=== PATIENT | male | born 1940 | race Caucasian/White ===

== ENCOUNTER 2017-08-09 10:22 | Inpatient (IN) | payer OTHER, MEDICARE ==
[~2017-08-09] VITALS: Ht 177.8 cm; Wt 128.1 kg
[2017-08-09] VITALS (12 sets, daily range): BP systolic 122–200; BP diastolic 74–100; PULSE 58–90; RESP 18–22; TEMP 97.5–98.8; O2SAT 98–100
[~2017-08-09 10:22] MED LIST: CEPH500T PO; TRAM50 PO
[2017-08-09] MEDS ORDERED: TAMS5CAP PO ×2 (10:33)
[2017-08-09] MEDS ORDERED: SODIUM CHLORIDE 0.9% FLUSH 10 ML FLUSH IVF PRN ×2 (11:15)
[2017-08-09 11:37] LABS: AUTOMATED NEUTROPHIL # 4.2 TH/MM3 (1.8-7.7); BASOPHIL % 0.7 % (0.0-2.0); EOSINOPHIL # 0.2 TH/MM3 (0-0.4); EOSINOPHIL % 3.1 % (0.0-4.0); HEMATOCRIT 36.5 % (39.0-51.0); HEMOGLOBIN 12.4 GM/DL (13.0-17.0); LYMPH % 15.9 % (9.0-44.0); MEAN CELL VOLUME 88.9 FL (80.0-100.0); MEAN CORPUSCULAR HEMOGLOBIN 30.1 PG (27.0-34.0); MEAN CORPUSCULAR HGB CONC 33.9 % (32.0-36.0); MONOCYTE # 0.7 TH/MM3 (0-0.9); NEUT % 69.3 % (16.0-70.0); PLATELET COUNT 236 TH/MM3 (150-450); RED BLOOD COUNT 4.11 MIL/MM3 (4.50-5.90); RED CELL DISTRIBUTION WIDTH 12.4 % (11.6-17.2); WHITE BLOOD COUNT 6.1 TH/MM3 (4.0-11.0)
--- NOTE | 2017-08-09 11:43 | RADRPT ---
EXAM DATE/TIME: 08/09/2017 11:22 [facility] COMPARISON: No previous studies available for comparison. INDICATIONS : Numbness and tingling in right arm and leg since last night. Dizziness. Evaluate for cerebrovascula r accident. RADIATION DOSE: 65.95 CTDIvol (mGy) MEDICAL HISTORY : Carcinoma, prostate. SURGICAL HISTORY : None. ENCOUNTER: Initial ACUITY: 1 day PAIN SCALE: 0/10 LOCATION: cranial TECHNIQUE: Multiple contiguous axial images were obtained of the head. Using automated exposure control and adj ustment of the mA and/or kV according to patient size, radiation dose was kept as low as reasonably a chievable to obtain optimal diagnostic quality images. DICOM format image data is available electro nically for review and comparison. FINDINGS: There is a 1.6 cm acute hematoma involving the posterior limb of the internal capsule on the left at the lateral aspect of the globus pallidus without significant mass effect or midline shift. The locat ion of characteristic of hypertensive hemorrhage. No vasogenic edema is identified. No cortical infar ction is seen. Posterior fossa structures are unremarkable. CONCLUSION: 1. 1.7 cm hematoma involving left basal ganglia characteristic of hypertensive hemorrhage. Jesus Arana MD on August 09, 2017 at 11:40 Board Certified Radiologist. This report was verified electronically.
--- NOTE | 2017-08-09 11:47 | PD ---
HPI Chief Complaint: Neuro Symptoms/ Deficits Time Seen by Provider: 11:00 Travel History International Travel<30 days: No Contact w/Intl Traveler<30days: No Traveled to known affect area: No History of Present Illness HPI c/o tingling to rt ue/rt le since last night around 10pm, patient went to sleep hoping it would improve, it did not, but it did not get worse...WOULD RATE IT / 10.....NO ALLEVIATING/AGGRAVATING FACTORS. DENIES H/O HTN.....DENIES MENDEZ/N/V/CP PCP JULIEN ROSALES PMHX: HYPERCHOL, PROSTATE OF NOTE PATIENT SEEN FIRST THING AT BEGINNING OF SHIFT PFSH Past Medical History Cancer: Yes (prostate) High Cholesterol: Yes Diabetes: No Diminished Hearing: No GERD: Yes Thyroid Disease: Yes Influenza Vaccination: Yes (08/07/17) Past Surgical History Abdominal Surgery: Yes (HERNIA) Social History Alcohol Use: No Tobacco Use: No Substance Use: No Allergies-Medications (Allergen,Severity, Reaction): Coded Allergies: shellfish derived (Verified Allergy, Unknown, 08/09/17) Reported Meds & Prescriptions Reported Meds & Active Scripts Active Reported Flomax (Tamsulosin HCl) 0.4 Mg Cap 0.4 Mg PO HS Review of Systems Except as stated in HPI: all other systems reviewed are Neg General / Constitutional: No: Fever Eyes: No: Visual changes HENT: No: Headaches Cardiovascular: No: Chest Pain or Discomfort Respiratory: No: Shortness of Breath Gastrointestinal: No: Abdominal Pain Genitourinary: No: Dysuria Musculoskeletal: No: Pain Skin: No Rash Neurologic: Positive: Paresthesia Psychiatric: No: Depression Endocrine: No: Polydipsia Hematologic/Lymphatic: No: Easy Bruising Physical Exam Narrative GENERAL: SKIN: Warm and dry. HEAD: Atraumatic. Normocephalic. EYES: Pupils equal and round. No scleral icterus. No injection or drainage. ENT: No nasal bleeding or discharge. Mucous membranes pink and moist. NECK: Trachea midline. No JVD. CARDIOVASCULAR: Regular rate and rhythm. RESPIRATORY: No accessory muscle use. Clear to auscultation. Breath sounds equal bilaterally. GASTROINTESTINAL: Abdomen soft, non-tender, nondistended. MUSCULOSKELETAL: Extremities without clubbing, cyanosis, or edema. No obvious deformities. NEUROLOGICAL: Awake and alert. No obvious cranial nerve deficits. Motor grossly within normal limits. Five out of 5 muscle strength in the arms and legs. Normal speech. PSYCHIATRIC: Appropriate mood and affect; insight and judgment normal. Data Data Last Documented VS Vital Signs Date Time Temp Pulse Resp B/P (MAP) Pulse Ox O2 Delivery O2 Flow Rate FiO2 08/09/17 11:22 80 18 98 Room Air 08/09/17 10:33 97.5 193/100 (131) Orders Orders Electrocardiogram (08/09/17 11:01) Prothrombin Time / Inr (Pt) (08/09/17 11:01) Act Partial Throm Time (Ptt) (08/09/17 11:01) Complete Blood Count With Diff (08/09/17 11:01) Comprehensive Metabolic Panel (08/09/17 11:) Troponin I (08/09/17 11:01) Urinalysis - C+S If Indicated (08/09/17 11:01) Ct Brain W/O Iv Contrast(Rout) (08/09/17 11:01) Chest, Single Ap (08/09/17 11:01) Ecg Monitoring (08/09/17 11:01) Iv Access Insert/Monitor (08/09/17 11:01) Oxygen Administration (08/09/17 11:01) Oximetry (08/09/17 11:01) Blood Glucose (08/09/17 11:01) Sodium Chloride 0.9% Flush (Ns Flush) (08/09/17 11:15) Esmolol Drip Inj Premix (Brevibloc Drip (08/09/17 11:45) Nicardipine Inj (Cardene Inj) (08/09/17 12:00) Admit Order (Ed Use Only) (08/09/17 11:52) Labs Laboratory Tests Test 08/09/17 11:20 White Blood Count 6.1 TH/MM3 Red Blood Count 4.11 MIL/MM3 Hemoglobin 12.4 GM/DL Hematocrit 36.5 % Mean Corpuscular Volume 88.9 FL Mean Corpuscular Hemoglobin 30.1 PG Mean Corpuscular Hemoglobin Concent 33.9 % Red Cell Distribution Width 12.4 % Platelet Count 236 TH/MM3 Mean Platelet Volume 8.0 FL Neutrophils (%) (Auto) 69.3 % Lymphocytes (%) (Auto) 15.9 % Monocytes (%) (Auto) 11.0 % Eosinophils (%) (Auto) 3.1 % Basophils (%) (Auto) 0.7 % Neutrophils # (Auto) 4.2 TH/MM3 Lymphocytes # (Auto) 1.0 TH/MM3 Monocytes # (Auto) 0.7 TH/MM3 Eosinophils # (Auto) 0.2 TH/MM3 Basophils # (Auto) 0.0 TH/MM3 CBC Comment DIFF FINAL Differential Comment Prothrombin Time 10.8 SEC Prothromb Time International Ratio 1.0 RATIO Activated Partial Thromboplast Time 27.9 SEC Blood Urea Nitrogen 16 MG/DL Creatinine 1.30 MG/DL Random Glucose 102 MG/DL Total Protein 7.4 GM/DL Albumin 3.6 GM/DL Calcium Level 8.6 MG/DL Alkaline Phosphatase 105 U/L Aspartate Amino Transf (AST/SGOT) 11 U/L Alanine Aminotransferase (ALT/SGPT) 21 U/L Total Bilirubin 0.5 MG/DL Sodium Level 139 MEQ/L Potassium Level 4.0 MEQ/L Chloride Level 105 MEQ/L Carbon Dioxide Level 25.2 MEQ/L Anion Gap 9 MEQ/L Estimat Glomerular Filtration Rate 53 ML/MIN Troponin I LESS THAN 0.02 NG/ML MDM Medical Decision Making Medical Screen Exam Complete: Yes Emergency Medical Condition: Yes Medical Record Reviewed: Yes Interpretation(s) nsr 80, frequent unifocal pvc, no stemi pattern Differential Diagnosis ICH V ISCHEMIC STROKE V TIA V CVA V HTN EMERGENCY Narrative Course PATIENT WAS SEEN AND STARTED ON BP CONTROL BY IV, SPOKE WITH FIELD COLLECTOR DR HIDALGO AND WILL RECEIVE PATIENT. AND MADE DR CHAPA NEUROSURG AWARE WELL. Critical Care Narrative CRITICAL CARE NOTE: With evaluation of the patient, labs, EKG, receipt of radiologic studies, administration of medications, reevaluation the patient and discussion of the patient with the admitting physicians, the total critical care time was [45] minutes. Time to perform other separately billable procedures was not included in the critical care time. Physician Communication Physician Communication spoke with dr HIDALGO train braker and will transfer to [facility] Diagnosis Primary Impression: Hypertensive emergency Additional Impression: INTRACRANIAL HEMORRHAGE Disposition: 70 TRANSFER TO OTHER FACILITY (TRANSFER TO [facility] BED IN [facility] [place]) Condition: Erik Bowens MD Aug 09, 2017 11:47
--- NOTE | 2017-08-09 11:47 | PD ---
HPI Chief Complaint: Neuro Symptoms/ Deficits Time Seen by Provider: 11:00 Travel History International Travel<30 days: No Contact w/Intl Traveler<30days: No Traveled to known affect area: No History of Present Illness HPI c/o tingling to rt ue/rt le since last night around 10pm, patient went to sleep hoping it would improve, it did not, but it did not get worse...WOULD RATE IT / 10.....NO ALLEVIATING/AGGRAVATING FACTORS. DENIES H/O HTN.....DENIES MENDEZ/N/V/CP PCP JULIEN ROSALES PMHX: HYPERCHOL, PROSTATE OF NOTE PATIENT SEEN FIRST THING AT BEGINNING OF SHIFT PFSH Past Medical History Cancer: Yes (prostate) High Cholesterol: Yes Diabetes: No Diminished Hearing: No GERD: Yes Thyroid Disease: Yes Influenza Vaccination: Yes (08/07/17) Past Surgical History Abdominal Surgery: Yes (HERNIA) Social History Alcohol Use: No Tobacco Use: No Substance Use: No Allergies-Medications (Allergen,Severity, Reaction): Coded Allergies: shellfish derived (Verified Allergy, Unknown, 08/09/17) Reported Meds & Prescriptions Reported Meds & Active Scripts Active Reported Flomax (Tamsulosin HCl) 0.4 Mg Cap 0.4 Mg PO HS Review of Systems Except as stated in HPI: all other systems reviewed are Neg General / Constitutional: No: Fever Eyes: No: Visual changes HENT: No: Headaches Cardiovascular: No: Chest Pain or Discomfort Respiratory: No: Shortness of Breath Gastrointestinal: No: Abdominal Pain Genitourinary: No: Dysuria Musculoskeletal: No: Pain Skin: No Rash Neurologic: Positive: Paresthesia Psychiatric: No: Depression Endocrine: No: Polydipsia Hematologic/Lymphatic: No: Easy Bruising Physical Exam Narrative GENERAL: SKIN: Warm and dry. HEAD: Atraumatic. Normocephalic. EYES: Pupils equal and round. No scleral icterus. No injection or drainage. ENT: No nasal bleeding or discharge. Mucous membranes pink and moist. NECK: Trachea midline. No JVD. CARDIOVASCULAR: Regular rate and rhythm. RESPIRATORY: No accessory muscle use. Clear to auscultation. Breath sounds equal bilaterally. GASTROINTESTINAL: Abdomen soft, non-tender, nondistended. MUSCULOSKELETAL: Extremities without clubbing, cyanosis, or edema. No obvious deformities. NEUROLOGICAL: Awake and alert. No obvious cranial nerve deficits. Motor grossly within normal limits. Five out of 5 muscle strength in the arms and legs. Normal speech. PSYCHIATRIC: Appropriate mood and affect; insight and judgment normal. Data Data Last Documented VS Vital Signs Date Time Temp Pulse Resp B/P (MAP) Pulse Ox O2 Delivery O2 Flow Rate FiO2 08/09/17 11:22 80 18 98 Room Air 08/09/17 10:33 97.5 193/100 (131) Orders Orders Electrocardiogram (08/09/17 11:01) Prothrombin Time / Inr (Pt) (08/09/17 11:01) Act Partial Throm Time (Ptt) (08/09/17 11:01) Complete Blood Count With Diff (08/09/17 11:01) Comprehensive Metabolic Panel (08/09/17 11:) Troponin I (08/09/17 11:01) Urinalysis - C+S If Indicated (08/09/17 11:01) Ct Brain W/O Iv Contrast(Rout) (08/09/17 11:01) Chest, Single Ap (08/09/17 11:01) Ecg Monitoring (08/09/17 11:01) Iv Access Insert/Monitor (08/09/17 11:01) Oxygen Administration (08/09/17 11:01) Oximetry (08/09/17 11:01) Blood Glucose (08/09/17 11:01) Sodium Chloride 0.9% Flush (Ns Flush) (08/09/17 11:15) Esmolol Drip Inj Premix (Brevibloc Drip (08/09/17 11:45) Nicardipine Inj (Cardene Inj) (08/09/17 12:00) Admit Order (Ed Use Only) (08/09/17 11:52) Labs Laboratory Tests Test 08/09/17 11:20 White Blood Count 6.1 TH/MM3 Red Blood Count 4.11 MIL/MM3 Hemoglobin 12.4 GM/DL Hematocrit 36.5 % Mean Corpuscular Volume 88.9 FL Mean Corpuscular Hemoglobin 30.1 PG Mean Corpuscular Hemoglobin Concent 33.9 % Red Cell Distribution Width 12.4 % Platelet Count 236 TH/MM3 Mean Platelet Volume 8.0 FL Neutrophils (%) (Auto) 69.3 % Lymphocytes (%) (Auto) 15.9 % Monocytes (%) (Auto) 11.0 % Eosinophils (%) (Auto) 3.1 % Basophils (%) (Auto) 0.7 % Neutrophils # (Auto) 4.2 TH/MM3 Lymphocytes # (Auto) 1.0 TH/MM3 Monocytes # (Auto) 0.7 TH/MM3 Eosinophils # (Auto) 0.2 TH/MM3 Basophils # (Auto) 0.0 TH/MM3 CBC Comment DIFF FINAL Differential Comment Prothrombin Time 10.8 SEC Prothromb Time International Ratio 1.0 RATIO Activated Partial Thromboplast Time 27.9 SEC Blood Urea Nitrogen 16 MG/DL Creatinine 1.30 MG/DL Random Glucose 102 MG/DL Total Protein 7.4 GM/DL Albumin 3.6 GM/DL Calcium Level 8.6 MG/DL Alkaline Phosphatase 105 U/L Aspartate Amino Transf (AST/SGOT) 11 U/L Alanine Aminotransferase (ALT/SGPT) 21 U/L Total Bilirubin 0.5 MG/DL Sodium Level 139 MEQ/L Potassium Level 4.0 MEQ/L Chloride Level 105 MEQ/L Carbon Dioxide Level 25.2 MEQ/L Anion Gap 9 MEQ/L Estimat Glomerular Filtration Rate 53 ML/MIN Troponin I LESS THAN 0.02 NG/ML MDM Medical Decision Making Medical Screen Exam Complete: Yes Emergency Medical Condition: Yes Medical Record Reviewed: Yes Interpretation(s) nsr 80, frequent unifocal pvc, no stemi pattern Differential Diagnosis ICH V ISCHEMIC STROKE V TIA V CVA V HTN EMERGENCY Narrative Course PATIENT WAS SEEN AND STARTED ON BP CONTROL BY IV, SPOKE WITH APPARATUS LINEMAN DR HIDALGO AND WILL RECEIVE PATIENT. AND MADE DR CHAPA NEUROSURG AWARE WELL. Critical Care Narrative CRITICAL CARE NOTE: With evaluation of the patient, labs, EKG, receipt of radiologic studies, administration of medications, reevaluation the patient and discussion of the patient with the admitting physicians, the total critical care time was [45] minutes. Time to perform other separately billable procedures was not included in the critical care time. Physician Communication Physician Communication spoke with dr HIDALGO well surveying engineer and will transfer to [facility] Diagnosis Primary Impression: Hypertensive emergency Additional Impression: INTRACRANIAL HEMORRHAGE Disposition: 70 TRANSFER TO OTHER FACILITY (TRANSFER TO [facility] BED IN [facility]) Condition: Erik Bowens MD Aug 09, 2017 11:47
--- NOTE | 2017-08-09 11:47 | PD ---
HPI Chief Complaint: Neuro Symptoms/ Deficits Time Seen by Provider: 11:00 Travel History International Travel<30 days: No Contact w/Intl Traveler<30days: No Traveled to known affect area: No History of Present Illness HPI c/o tingling to rt ue/rt le since last night around 10pm, patient went to sleep hoping it would improve, it did not, but it did not get worse...WOULD RATE IT / 10.....NO ALLEVIATING/AGGRAVATING FACTORS. DENIES H/O HTN.....DENIES MENDEZ/N/V/CP PCP JULIEN ROSALES PMHX: HYPERCHOL, PROSTATE OF NOTE PATIENT SEEN FIRST THING AT BEGINNING OF SHIFT PFSH Past Medical History Cancer: Yes (prostate) High Cholesterol: Yes Diabetes: No Diminished Hearing: No GERD: Yes Thyroid Disease: Yes Influenza Vaccination: Yes (08/07/17) Past Surgical History Abdominal Surgery: Yes (HERNIA) Social History Alcohol Use: No Tobacco Use: No Substance Use: No Allergies-Medications (Allergen,Severity, Reaction): Coded Allergies: shellfish derived (Verified Allergy, Unknown, 08/09/17) Reported Meds & Prescriptions Reported Meds & Active Scripts Active Reported Flomax (Tamsulosin HCl) 0.4 Mg Cap 0.4 Mg PO HS Review of Systems Except as stated in HPI: all other systems reviewed are Neg General / Constitutional: No: Fever Eyes: No: Visual changes HENT: No: Headaches Cardiovascular: No: Chest Pain or Discomfort Respiratory: No: Shortness of Breath Gastrointestinal: No: Abdominal Pain Genitourinary: No: Dysuria Musculoskeletal: No: Pain Skin: No Rash Neurologic: Positive: Paresthesia Psychiatric: No: Depression Endocrine: No: Polydipsia Hematologic/Lymphatic: No: Easy Bruising Physical Exam Narrative GENERAL: SKIN: Warm and dry. HEAD: Atraumatic. Normocephalic. EYES: Pupils equal and round. No scleral icterus. No injection or drainage. ENT: No nasal bleeding or discharge. Mucous membranes pink and moist. NECK: Trachea midline. No JVD. CARDIOVASCULAR: Regular rate and rhythm. RESPIRATORY: No accessory muscle use. Clear to auscultation. Breath sounds equal bilaterally. GASTROINTESTINAL: Abdomen soft, non-tender, nondistended. MUSCULOSKELETAL: Extremities without clubbing, cyanosis, or edema. No obvious deformities. NEUROLOGICAL: Awake and alert. No obvious cranial nerve deficits. Motor grossly within normal limits. Five out of 5 muscle strength in the arms and legs. Normal speech. PSYCHIATRIC: Appropriate mood and affect; insight and judgment normal. Data Data Last Documented VS Vital Signs Date Time Temp Pulse Resp B/P (MAP) Pulse Ox O2 Delivery O2 Flow Rate FiO2 08/09/17 11:22 80 18 98 Room Air 08/09/17 10:33 97.5 193/100 (131) Orders Orders Electrocardiogram (08/09/17 11:01) Prothrombin Time / Inr (Pt) (08/09/17 11:01) Act Partial Throm Time (Ptt) (08/09/17 11:01) Complete Blood Count With Diff (08/09/17 11:01) Comprehensive Metabolic Panel (08/09/17 11:) Troponin I (08/09/17 11:01) Urinalysis - C+S If Indicated (08/09/17 11:01) Ct Brain W/O Iv Contrast(Rout) (08/09/17 11:01) Chest, Single Ap (08/09/17 11:01) Ecg Monitoring (08/09/17 11:01) Iv Access Insert/Monitor (08/09/17 11:01) Oxygen Administration (08/09/17 11:01) Oximetry (08/09/17 11:01) Blood Glucose (08/09/17 11:01) Sodium Chloride 0.9% Flush (Ns Flush) (08/09/17 11:15) Esmolol Drip Inj Premix (Brevibloc Drip (08/09/17 11:45) Nicardipine Inj (Cardene Inj) (08/09/17 12:00) Admit Order (Ed Use Only) (08/09/17 11:52) Labs Laboratory Tests Test 08/09/17 11:20 White Blood Count 6.1 TH/MM3 Red Blood Count 4.11 MIL/MM3 Hemoglobin 12.4 GM/DL Hematocrit 36.5 % Mean Corpuscular Volume 88.9 FL Mean Corpuscular Hemoglobin 30.1 PG Mean Corpuscular Hemoglobin Concent 33.9 % Red Cell Distribution Width 12.4 % Platelet Count 236 TH/MM3 Mean Platelet Volume 8.0 FL Neutrophils (%) (Auto) 69.3 % Lymphocytes (%) (Auto) 15.9 % Monocytes (%) (Auto) 11.0 % Eosinophils (%) (Auto) 3.1 % Basophils (%) (Auto) 0.7 % Neutrophils # (Auto) 4.2 TH/MM3 Lymphocytes # (Auto) 1.0 TH/MM3 Monocytes # (Auto) 0.7 TH/MM3 Eosinophils # (Auto) 0.2 TH/MM3 Basophils # (Auto) 0.0 TH/MM3 CBC Comment DIFF FINAL Differential Comment Prothrombin Time 10.8 SEC Prothromb Time International Ratio 1.0 RATIO Activated Partial Thromboplast Time 27.9 SEC Blood Urea Nitrogen 16 MG/DL Creatinine 1.30 MG/DL Random Glucose 102 MG/DL Total Protein 7.4 GM/DL Albumin 3.6 GM/DL Calcium Level 8.6 MG/DL Alkaline Phosphatase 105 U/L Aspartate Amino Transf (AST/SGOT) 11 U/L Alanine Aminotransferase (ALT/SGPT) 21 U/L Total Bilirubin 0.5 MG/DL Sodium Level 139 MEQ/L Potassium Level 4.0 MEQ/L Chloride Level 105 MEQ/L Carbon Dioxide Level 25.2 MEQ/L Anion Gap 9 MEQ/L Estimat Glomerular Filtration Rate 53 ML/MIN Troponin I LESS THAN 0.02 NG/ML MDM Medical Decision Making Medical Screen Exam Complete: Yes Emergency Medical Condition: Yes Medical Record Reviewed: Yes Interpretation(s) nsr 80, frequent unifocal pvc, no stemi pattern Differential Diagnosis ICH V ISCHEMIC STROKE V TIA V CVA V HTN EMERGENCY Narrative Course PATIENT WAS SEEN AND STARTED ON BP CONTROL BY IV, SPOKE WITH RING SPINNER DR HIDALGO AND WILL RECEIVE PATIENT. AND MADE DR CHAPA NEUROSURG AWARE WELL. Critical Care Narrative CRITICAL CARE NOTE: With evaluation of the patient, labs, EKG, receipt of radiologic studies, administration of medications, reevaluation the patient and discussion of the patient with the admitting physicians, the total critical care time was [45] minutes. Time to perform other separately billable procedures was not included in the critical care time. Physician Communication Physician Communication spoke with dr HIDALGO mill tender second operator and will transfer to [facility] Diagnosis Primary Impression: Hypertensive emergency Additional Impression: INTRACRANIAL HEMORRHAGE Disposition: 70 TRANSFER TO OTHER FACILITY (TRANSFER TO [facility] BED IN [facility] [place]) Condition: Erik Bowens MD Aug 09, 2017 11:47
[2017-08-09 11:50] LABS: CHLORIDE 105 MEQ/L (98-107); SODIUM (NA) 139 MEQ/L (136-145)
[2017-08-09 11:53] LABS: CALCIUM 8.6 MG/DL (8.5-10.1); PROTHROMBIN TIME - PATIENT 10.8 SEC (9.8-11.6)
--- NOTE | 2017-08-09 11:53 | RADRPT ---
EXAM DATE/TIME: 08/09/2017 11:19 [facility] COMPARISON: No previous studies available for comparison. INDICATIONS : Possible CVA, weakness, short of breath, numbness. MEDICAL HISTORY : Hypercholesterolemia. Gastroesophageal reflux disease. Carcinoma, prostatic. Thyroid disease. SURGICAL HISTORY : Hernia repair. ENCOUNTER: Initial ACUITY: 1 day PAIN SCORE: 0/10 LOCATION: chest FINDINGS: The heart is enlarged. Mild edges edema is present. There is no consolidation, pleural effusion or pneumothorax. CONCLUSION: Mild failure. Huang Cisse MD FACR on August 09, 2017 at 11:50 Board Certified Radiologist. This report was verified electronically.
[2017-08-09 11:54] LABS: ALBUMIN 3.6 GM/DL (3.4-5.0); BICARBONATE 25.2 MEQ/L (21.0-32.0); BLOOD UREA NITROGEN 16 MG/DL (7-18); GLUCOSE,RANDOM 102 MG/DL (74-106)
[2017-08-09] MEDS: ESMOLOL DRIP INJ PREMIX 250 ML IV PRN ×4 (11:55→15:41)
[2017-08-09 11:57] LABS: ALT (GPT) 21 U/L (12-78); AST (GOT) 11 U/L (15-37); GLOMERULAR FILTRATION RATE 53 ML/MIN (>89)
[2017-08-09 11:58] LABS: TOTAL BILIRUBIN ADULT 0.5 MG/DL (0.2-1.0); TOTAL PROTEIN 7.4 GM/DL (6.4-8.2)
[2017-08-09 12:00] LABS: ALKALINE PHOSPHATASE 105 U/L (45-117)
[2017-08-09] MEDS ORDERED: ACETAMINOPHEN 325 MG TAB PO PRN ×2 (12:00)
[2017-08-09] MEDS ORDERED: CHLORHEXIDINE GLUCONATE 2 % 1 PACK (2 CLOTHS) TOP PRN ×2 (12:00)
[2017-08-09] MEDS ORDERED: SODIUM CHLORIDE 0.9% FLUSH 10 ML FLUSH IV FLUSH PRN ×2 (12:00)
[2017-08-09] MEDS ORDERED: ONDANSETRON HCL 4 MG/2 ML VIAL IV PUSH PRN ×2 (12:00)
[2017-08-09] MEDS ORDERED: MISCELLANEOUS NURSING INFORMATION XX SCH ×2 (12:00)
[2017-08-09] MEDS ORDERED: MORPHINE SULFATE 4 MG/ML INJ IV PUSH PRN ×2 (12:00)
[2017-08-09 12:02] LABS: TROPONIN I LESS THAN 0.02 NG/ML (0.02-0.05)
--- NOTE | 2017-08-09 12:11 | EKG ---
Date Performed: 08/09/2017 Time Performed: 10:35:52 PTAGE: 77 years EKG: Sinus rhythm WITH FREQUENT VENTRICULAR PREMATURE COMPLEXES ABNORMAL RHYTHM ECG NO PREVIOUS TRACING DOCTOR: Andrez Morgan Interpretating Date/Time 08/09/2017 12:08:17
--- NOTE | 2017-08-09 12:46 | HHI.HP ---
[facility] Service Critical Care Medicine Primary Care Physician Frantz Allen MD Admission Diagnosis HYPERTENSIVE EMERGENCY, [facility] Diagnosis: (1) Stroke, hemorrhagic (2) Hypertensive emergency Diagnosis: Principal (3) Intracranial hemorrhage Diagnosis: Principal Chief Complaint: Numbness, tingling right hand and leg. Travel History International Travel<30 Days: No Contact w/Intl Traveler <30 Da: No Traveled to Known Affected Are: No History of Present Illness 77 y/o man with longstanding hypertension developed tingling in his right hand last evening. This did not resolve and he came to the ED. Severe hypertension and left basal ganglia bleed by CT scan. Started immediately on intravenous BP control and [place] [facility] [place] On arrival his blood pressure is 187/98, P 64, RR 14. Tingling persists right side. Review of Systems Constitutional: DENIES: Diaphoretic episodes, Fatigue, Fever, Weight gain, Weight loss, Chills, Dizziness, Change in appetite, Night Sweats Endocrine: DENIES: Heat/cold intolerance, Polydipsia, Polyuria, Polyphagia Eyes: DENIES: Blurred vision, Diplopia, Eye inflammation, Eye pain, Vision loss , Photosensitivity, Double Vision Ears, nose, mouth, throat: DENIES: Tinnitus, Hearing loss, Vertigo, Nasal discharge, Oral lesions, Throat pain, Hoarseness, Ear Pain, Running Nose, Epistaxis, Sinus Pain, Toothache, Odynophagia Respiratory: DENIES: Apneas, Cough, Snoring, Wheezing, Hemoptysis, Sputum production, Shortness of breath Gastrointestinal: DENIES: Abdominal pain, Black stools, Bloody stools, Constipation, Diarrhea, Nausea, Vomiting, Difficulty Swallowing, Anorexia Neurologic: COMPLAINS OF: Paresthesias Psychiatric: DENIES: Anxiety, Confusion, Mood changes, Depression, Hallucinations, Agitation, Suicidal Ideation, Homicidal Ideation, Delusions Past Family Social History Allergies: Coded Allergies: shellfish derived (Verified Allergy, Unknown, 08/09/17) Past Medical History Past Medical History Cancer: Yes (prostate) High Cholesterol: Yes Diabetes: No Diminished Hearing: No GERD: Yes Thyroid Disease: Yes Influenza Vaccination: Yes (08/07/17) Past Surgical History Abdominal Surgery: Yes (HERNIA) Social History Alcohol Use: No Tobacco Use: No Substance Use: No Allergies-Medications Allergies-Medications (Allergen,Severity, Reaction): Coded Allergies: shellfish derived (Verified Allergy, Unknown, 08/09/17) Reported Meds & Prescriptions Reported Meds & Active Scripts Active Reported Physical Exam Vital Signs Vital Signs Date Time Temp Pulse Resp B/P (MAP) Pulse Ox O2 Delivery O2 Flow Rate FiO2 08/09/17 12:24 64 194/99 08/09/17 12:23 64 18 194/99 (130) 98 Nasal Cannula 08/09/17 12:17 62 200/88 08/09/17 12:11 66 18 200/88 (125) 98 Nasal Cannula 2.00 08/09/17 12:11 98 Nasal Cannula 2.00 08/09/17 11:55 84 182/94 08/09/17 11:22 80 18 98 Room Air 08/09/17 10:36 80 18 98 Room Air 08/09/17 10:33 97.5 80 18 193/100 (131) 98 Physical Exam Gen: Uncomfortable man, alert. Head: Atraumatic, normal. Neck: Supple, airway widely patent. Lungs: Few sparse crackles, comfortable respiratory pattern. Good sue air entry. Heart: NL S1S2, bradycardia, no m,r. Moderate JVD. Abdomen: Large, soft, no guarding, no tenderness. Extremities: Warm, well perfused. No edema. Neuro: Motor 5/5 all 4 limbs. Sensory intact all 4 limbs. ROGELIO, tracks with eyes. O X 3, conversant with clear speech. Laboratory Laboratory Tests Test 08/09/17 11:20 White Blood Count 6.1 Red Blood Count 4.11 Hemoglobin 12.4 Hematocrit 36.5 Mean Corpuscular Volume 88.9 Mean Corpuscular Hemoglobin 30.1 Mean Corpuscular Hemoglobin Concent 33.9 Red Cell Distribution Width 12.4 Platelet Count 236 Mean Platelet Volume 8.0 Neutrophils (%) (Auto) 69.3 Lymphocytes (%) (Auto) 15.9 Monocytes (%) (Auto) 11.0 Eosinophils (%) (Auto) 3.1 Basophils (%) (Auto) 0.7 Neutrophils # (Auto) 4.2 Lymphocytes # (Auto) 1.0 Monocytes # (Auto) 0.7 Eosinophils # (Auto) 0.2 Basophils # (Auto) 0.0 CBC Comment DIFF FINAL Differential Comment Prothrombin Time 10.8 Prothromb Time International Ratio 1.0 Activated Partial Thromboplast Time 27.9 Blood Urea Nitrogen 16 Creatinine 1.30 Random Glucose 102 Total Protein 7.4 Albumin 3.6 Calcium Level 8.6 Alkaline Phosphatase 105 Aspartate Amino Transf (AST/SGOT) 11 Alanine Aminotransferase (ALT/SGPT) 21 Total Bilirubin 0.5 Sodium Level 139 Potassium Level 4.0 Chloride Level 105 Carbon Dioxide Level 25.2 Anion Gap 9 Estimat Glomerular Filtration Rate 53 Troponin I LESS THAN 0.02 Result Diagram: 08/09/17 1120 08/09/17 1120 Caprini VTE Risk Assessment Caprini VTE Risk Assessment: Mod/High Risk (score >= 2) Caprini Risk Assessment Model Point Value = 1 Point Value = 2 Point Value = 3 Point Value = 5 Age 41-60 Minor surgery BMI > 25 kg/m2 Swollen legs Varicose veins or History of unexplained or recurrent spontaneous Oral contraceptives or hormone replacement Sepsis (< 1 month) Serious lung disease, including pneumonia (< 1 month) Abnormal pulmonary function Acute myocardial infarction Congestive heart failure (< 1 month) History of inflammatory bowel disease Medical patient at bed rest Age 61-74 Arthroscopic surgery Major open surgery (> 45 min) Laparoscopic surgery (> 45 min) Malignancy Confined to bed (> 72 hours) Immobilizing plaster cast Central venous access Age >= 75 History of VTE Family history of VTE Factor V Leiden Prothrombin [id number] Lupus anticoagulant Anticardiolipin antibodies Elevated serum homocysteine Heparin-induced thrombocytopenia Other congenital or acquired thrombophilia Stroke (< 1 month) Elective arthroplasty Hip, pelvis, or leg fracture Acute spinal cord injury (< 1 month) Prophylaxis Regimen Total Risk Factor Score Risk Level Prophylaxis Regimen 0-1 Low Early ambulation 2 Moderate Order ONE of the following: *Sequential Compression Device (SCD) *Heparin 5000 units SQ BID 3-4 Higher Order ONE of the following medications: *Heparin 5000 units SQ TID *Enoxaparin/Lovenox 40 mg SQ daily (WT < 150 kg, CrCl > 30 mL/min) *Enoxaparin/Lovenox 30 mg SQ daily (WT < 150 kg, CrCl > 10-29 mL/min) *Enoxaparin/Lovenox 30 mg SQ BID (WT < 150 kg, CrCl > 30 mL/min) AND/OR *Sequential Compression Device (SCD) 5 or more Highest Order ONE of the following medications: *Heparin 5000 units SQ TID (Preferred with Epidurals) *Enoxaparin/Lovenox 40 mg SQ daily (WT < 150 kg, CrCl > 30 mL/min) *Enoxaparin/Lovenox 30 mg SQ daily (WT < 150 kg, CrCl > 10-29 mL/min) *Enoxaparin/Lovenox 30 mg SQ BID (WT < 150 kg, CrCl > 30 mL/min) AND *Sequential Compression Device (SCD) Assessment and Plan Assessment and Plan Assessment: 1. Hemorrhagic stroke. 2. Hypertensive emergency. 3. Sensation deficit right hand. 4. Interstitial edema. Plan: 1. Cardene iv to keep BP < 140/90. 2. Neuro checks hourly. 3. No chemical DVT Px. 4. Pepcid. 5. SCDs. 5. Repeat Head CT in a.m, sooner for neuro change. 6. Start oral bp control. 7. BNP. 8. Serial lung exam. Watch for hypertensive pulmonary edema, hypoxemia. Overall impression: Patient is critically ill having sustained an acute intracranial hemorrhage associated with uncontrolled hypertension. May require intubation and mechanical ventilation for airway control. Critical Care 38 mins Be Lebron MD Aug 09, 2017 12:46
[2017-08-09] MEDS: niCARdipine INJ 25 MG in SODIUM CHLOR 0.9% 250 ML INJ 240 ML IV PRN ×4 (13:00)
[2017-08-09] MEDS: SODIUM CHLOR 0.9% 1000 ML INJ 1,000 ML IV SCH ×2 (14:00)
[2017-08-09] MEDS: LISINOPRIL 5 MG TAB PO SCH ×4 (14:15→20:27)
--- NOTE | 2017-08-09 14:55 | PD.CONS ---
(Alex Tate MD) HPI Service neurosurgery Consult Requested By [facility] Reason for Consult [facility] Primary Care Physician Frantz Allen MD (Alex Tate MD) History of Present Illness Mr. Rodrigez is a 77 year old male who presented to [facility] ED with complaints of numbness and tingling in his right upper and lower extremity. His blood pressure was severely elevated and the patient was placed on a antihypertensive drip. A CT head showed a left internal capsule hemorrhage. A neurosurgical evaluation was requested. The patient denies prior history of hypertension. He denies headaches, focal weakness, dysarthria, double vision, nausea, vomiting or seizures. (Judie Garibay) Review of Systems ROS Limitations: Altered Mental Status Constitutional: DENIES: Fever, Chills Eyes: DENIES: Diplopia Ears, nose, mouth, throat: DENIES: Vertigo Respiratory: DENIES: Apneas Cardiovascular: DENIES: Chest pain Gastrointestinal: DENIES: Abdominal pain Genitourinary: DENIES: Urinary incontinence Neurologic: COMPLAINS OF: Paresthesias, DENIES: Headache, Localized weakness, Poor Balance Psychiatric: DENIES: Hallucinations (Judie Garibay) Past Family Social History Allergies: Coded Allergies: shellfish derived (Verified Allergy, Unknown, 08/09/17) Past Medical History Hyperlipidemia prostate CA Thyroid Past Surgical History Hernia repair Reported Medications reviewed in EMR Active Ordered Medications Current Medications Medications (Trade) Dose Ordered Sig/Maco Route PRN Reason Start Time Stop Time Status Last Admin Dose Admin Sodium Chloride (NS Flush) 2 ml UNSCH PRN IVF FLUSH AFTER USING IV ACCESS 08/09/17 11:15 Esmolol HCl/ Sodium Chloride 250 ml @ 39 mls/hr TITRATE PRN IV Blood Pressure Management 08/09/17 11:45 08/09/17 11:55 Nicardipine HCl 25 mg/Sodium Chloride 250 ml @ 50 mls/hr TITRATE PRN IV Blood pressure management 08/09/17 12:00 08/09/17 13:00 Sodium Chloride 1,000 ml @ 10 mls/hr Q24H IV 08/09/17 11:58 08/09/17 14:00 Sodium Chloride (NS Flush) 2 ml UNSCH PRN IV FLUSH FLUSH AFTER USING IV ACCESS 08/09/17 12:00 Sodium Chloride (NS Flush) 2 ml BID IV FLUSH 08/09/17 21:00 Acetaminophen (Tylenol) 650 mg Q6H PRN PO PAIN 1-10 AND/OR FEVER >101F 08/09/17 12:00 Morphine Sulfate (Morphine Inj) 2 mg Q2H PRN IV PUSH Headache SCALE 6 TO 10 08/09/17 12:00 Pantoprazole Sodium (Protonix) 40 mg DAILY PO 08/10/17 09:00 Ondansetron HCl (Zofran Inj) 4 mg Q6H PRN IV PUSH NAUSEA OR VOMITING 08/09/17 12:00 Albuterol/ Ipratropium (Duoneb Neb) 1 ampule Q4HR NEB PRN INH WHEEZING 08/09/17 16:00 Miscellaneous Information 1 [id number] XX 08/09/17 12:00 Chlorhexidine Gluconate (Chlorhexidine 2% Cloth) 3 pack Taper DAILY@04 TOP 08/10/17 04:00 08/06/18 03:59 Chlorhexidine Gluconate (Chlorhexidine 2% Cloth) 3 pack UNSCH PRN TOP HYGIENIC CARE 08/09/17 12:00 Metoprolol Tartrate (Lopressor) 50 mg Q12HR PO 08/09/17 13:15 08/09/17 15:13 Lisinopril (Prinivil) 5 mg Q12HR PO 08/09/17 13:15 08/09/17 14:15 Amlodipine Besylate (Norvasc) 5 mg DAILY PO 08/10/17 09:00 Social History denies tobacco, etoh, or illicit drug use (Judie Garibay) Physical Exam Vital Signs Vital Signs Date Time Temp Pulse Resp B/P (MAP) Pulse Ox O2 Delivery O2 Flow Rate FiO2 08/09/17 13:00 88 198/110 08/09/17 12:40 68 200/100 08/09/17 12:25 66 18 174/85 (114) 98 08/09/17 12:24 64 194/99 08/09/17 12:23 64 18 194/99 (130) 98 Nasal Cannula 08/09/17 12:17 62 200/88 08/09/17 12:11 66 18 200/88 (125) 98 Nasal Cannula 2.00 08/09/17 12:11 98 Nasal Cannula 2.00 08/09/17 11:55 84 182/94 08/09/17 11:22 80 18 98 Room Air 08/09/17 10:36 80 18 98 Room Air 08/09/17 10:33 97.5 80 18 193/100 (131) 98 Physical Exam The patient is alert, awake and oriented to time, place and person. Speech is fluent. Higher cognitive functions are normal. Cranial nerve examination demonstrates the pupils to be equal, round, and reactive to light. Extra-ocular movements are intact. Facial motor and sensory function are normal and symmetrical. Gross hearing is intact, bilaterally. The uvula is midline and elevates symmetrically with the soft palate. Sternocleidomastoid and trapezius muscles have normal and symmetrical strength. Other cranial nerves are intact. Neck is soft and supple. Cervical spine has a full range of motion in anterior flexion, extension, lateral bending, and rotation without pain. There is no tenderness to palpation to the spinous processes or paraspinal muscles. Muscle testing reveals normal bulk and tone overall without rigidity, spasticity , fasciculations, or atrophy. Muscle strength is 5/5 in all muscle groups of both upper extremities including deltoid, biceps, triceps, brachioradialis, wrist extension and medical records assistant. In the lower extremities, strength is 5/5 in both iliopsoas, quadriceps, hamstrings, plantar flexion, dorsiflexion, and extensor hallicus longus. Sensory examination is intact to light touch and sharp/dull discrimination in both the upper and lower extremities, symmetrically. Deep tendon reflexes are 2+ and symmetrical in the biceps, triceps, and brachioradialis, bilaterally, in the upper extremities. In the lower extremities , the patellar and Achilles are 2+, bilaterally. There is a bilateral plantar flexion response. Hoffmanns sign is negative. There is no clonus or other abnormal reflexes noted. Cerebellar examination is intact to [id number] test, rapid rhythmic alternating motion. There is no dysmetria, dysdiadochokinesia, truncal ataxia, or tremor. Laboratory Laboratory Tests Test 08/09/17 11:20 08/09/17 13:20 White Blood Count 6.1 Red Blood Count 4.11 Hemoglobin 12.4 Hematocrit 36.5 Mean Corpuscular Volume 88.9 Mean Corpuscular Hemoglobin 30.1 Mean Corpuscular Hemoglobin Concent 33.9 Red Cell Distribution Width 12.4 Platelet Count 236 Mean Platelet Volume 8.0 Neutrophils (%) (Auto) 69.3 Lymphocytes (%) (Auto) 15.9 Monocytes (%) (Auto) 11.0 Eosinophils (%) (Auto) 3.1 Basophils (%) (Auto) 0.7 Neutrophils # (Auto) 4.2 Lymphocytes # (Auto) 1.0 Monocytes # (Auto) 0.7 Eosinophils # (Auto) 0.2 Basophils # (Auto) 0.0 CBC Comment DIFF FINAL Differential Comment Prothrombin Time 10.8 Prothromb Time International Ratio 1.0 Activated Partial Thromboplast Time 27.9 Blood Urea Nitrogen 16 Creatinine 1.30 Random Glucose 102 Total Protein 7.4 Albumin 3.6 Calcium Level 8.6 Alkaline Phosphatase 105 Aspartate Amino Transf (AST/SGOT) 11 Alanine Aminotransferase (ALT/SGPT) 21 Total Bilirubin 0.5 Sodium Level 139 Potassium Level 4.0 Chloride Level 105 Carbon Dioxide Level 25.2 Anion Gap 9 Estimat Glomerular Filtration Rate 53 Troponin I LESS THAN 0.02 (Alex Tate MD) Result Diagram: 08/09/17 1120 08/09/17 1120 Imaging Last [address] 08/09/17 1101 Signed Impressions: Service Date/Time: Wednesday, August 09, 2017 11:22 - CONCLUSION: 1. 1.7 cm hematoma involving left basal ganglia characteristic of hypertensive hemorrhage. Jesus Arana MD Chest X-Ray 08/09/17 1101 Signed Impressions: Service Date/Time: Wednesday, August 09, 2017 11:19 - CONCLUSION: Mild failure. Huang Cisse MD FACR (Alex Tate MD) Assessment and Plan Assessment and Plan Caprini VTE Risk Assessment Caprini VTE Risk Assessment: Mod/High Risk (score >= 2) Caprini Risk Assessment Model Point Value = 1 Point Value = 2 Point Value = 3 Point Value = 5 Age 41-60 Minor surgery BMI > 25 kg/m2 Swollen legs Varicose veins or History of unexplained or recurrent spontaneous Oral contraceptives or hormone replacement Sepsis (< 1 month) Serious lung disease, including pneumonia (< 1 month) Abnormal pulmonary function Acute myocardial infarction Congestive heart failure (< 1 month) History of inflammatory bowel disease Medical patient at bed rest Age 61-74 Arthroscopic surgery Major open surgery (> 45 min) Laparoscopic surgery (> 45 min) Malignancy Confined to bed (> 72 hours) Immobilizing plaster cast Central venous access Age >= 75 History of VTE Family history of VTE Factor V Leiden Prothrombin [id number] Lupus anticoagulant Anticardiolipin antibodies Elevated serum homocysteine Heparin-induced thrombocytopenia Other congenital or acquired thrombophilia Stroke (< 1 month) Elective arthroplasty Hip, pelvis, or leg fracture Acute spinal cord injury (< 1 month) Prophylaxis Regimen Total Risk Factor Score Risk Level Prophylaxis Regimen 0-1 Low Early ambulation 2 Moderate Order ONE of the following: *Sequential Compression Device (SCD) *Heparin 5000 units SQ BID 3-4 Higher Order ONE of the following medications: *Heparin 5000 units SQ TID *Enoxaparin/Lovenox 40 mg SQ daily (WT < 150 kg, CrCl > 30 mL/min) *Enoxaparin/Lovenox 30 mg SQ daily (WT < 150 kg, CrCl > 10-29 mL/min) *Enoxaparin/Lovenox 30 mg SQ BID (WT < 150 kg, CrCl > 30 mL/min) AND/OR *Sequential Compression Device (SCD) 5 or more Highest Order ONE of the following medications: *Heparin 5000 units SQ TID (Preferred with Epidurals) *Enoxaparin/Lovenox 40 mg SQ daily (WT < 150 kg, CrCl > 30 mL/min) *Enoxaparin/Lovenox 30 mg SQ daily (WT < 150 kg, CrCl > 10-29 mL/min) *Enoxaparin/Lovenox 30 mg SQ BID (WT < 150 kg, CrCl > 30 mL/min) AND *Sequential Compression Device (SCD) (Alex Tate MD) Attending Statement Neuro. neuro checks in a serial fashion. A follow-up CT of the head will be obtained in 24 hours. Nonoperative treatment Pulmonary.aggressive pulmonary toilette, nasotracheal suction, and breathing treatments with nebulizers. Cardene drip for BP control The patient has comorbidities which increase the risk for developing complications. Nutrition. Oral diet Renal. monitor closely urine output, BUN and creatinine Endocrine. Monitor serial Acu checks and SSI as needed in detail ID monitor for signs of infection Protonix for stress ulcer prophylaxis Denzel hose and SCD's for DVT prophylaxis. (Alex Tate MD) Alex Tate MD Aug 09, 2017 14:55 Judie Garibay Aug 09, 2017 15:54
[2017-08-09] MEDS: METOPROLOL TARTRATE 50 MG TAB PO SCH ×4 (15:13→20:28)
[2017-08-09 15:58] LABS: BILIRUBIN, URINE NEG (NEG); BLOOD, URINE NEG (NEG); GLUCOSE,URINE NEG (NEG); HYALINE CAST, URINE 1 /lpf (RARE); KETONE, URINE NEG (NEG); MUCUS URINE FEW /lpf (OCC); NITRITE,URINE NEG (NEG); SQUAMOUS EPITHELIAL CELL URINE <1 /hpf (0-5); URINE COLOR YELLOW (YELLW/STRAW); URINE LEUKOCYTE ESTERASE NEG (NEG)
[2017-08-09] MEDS ORDERED: RESP: ALBUTEROL 2.5 MG/IPRATROPIUM 0.5 MG NEB (PRN) INH ×2 (16:00)
[2017-08-09] MEDS: SODIUM CHLORIDE 0.9% FLUSH 10 ML FLUSH IV FLUSH SCH ×2 (21:00)
[2017-08-10] VITALS (14 sets, daily range): BP systolic 130–177; BP diastolic 61–84; PULSE 53–72; RESP 20–26; TEMP 97.4–98.1; O2SAT 97–99
[2017-08-10] MEDS ORDERED: CHLORHEXIDINE GLUCONATE 2 % 1 PACK (2 CLOTHS) TOP SCH ×2 (04:00)
--- NOTE | 2017-08-10 05:09 | RADRPT ---
EXAM DATE/TIME: 08/10/2017 04:33 [facility] COMPARISON: CT BRAIN W/O CONTRAST, August 09, 2017, 11:22. INDICATIONS : Follow up left basal ganglia hemorrhage. RADIATION DOSE: 36.17 CTDIvol (mGy) MEDICAL HISTORY : Carcinoma, prostate. SURGICAL HISTORY : None. ENCOUNTER: Subsequent ACUITY: 1 day PAIN SCALE: 0/10 LOCATION: Left cranial TECHNIQUE: Multiple contiguous axial images were obtained of the head. Using automated exposure control and adj ustment of the mA and/or kV according to patient size, radiation dose was kept as low as reasonably a chievable to obtain optimal diagnostic quality images. DICOM format image data is available electro nically for review and comparison. FINDINGS: CEREBRUM: Left basal ganglia hemorrhage unchanged. No new hemorrhage identified. Ventricles unchanged in size. No midline shift. No evidence of acute infarct. No intracranial mass lesion identified. POSTERIOR FOSSA: The cerebellum and brainstem are intact. The 4th ventricle is midline. The cerebellopontine angle i s unremarkable. EXTRACRANIAL: The visualized portion of the orbits is intact. SKULL: The calvaria is intact. No evidence of skull fracture. CONCLUSION: No change in left basal ganglia hemorrhage. Venkata Morgan MD on August 10, 2017 at 5:06 Board Certified Radiologist. This report was verified electronically.
[2017-08-10 06:18] LABS: CALCIUM 8.7 MG/DL (8.5-10.1); CREATININE 1.19 MG/DL (0.60-1.30); MAGNESIUM 2.3 MG/DL (1.5-2.5); PHOSPHORUS 3.2 MG/DL (2.5-4.9)
[2017-08-10] MEDS: METOPROLOL TARTRATE 50 MG TAB PO SCH ×4 (07:51→20:47)
[2017-08-10] MEDS: PANTOPRAZOLE SOD 40 MG DELAYED RELEASE TAB PO SCH ×2 (07:51)
[2017-08-10] MEDS: LISINOPRIL 5 MG TAB PO SCH ×4 (07:51→20:48)
[2017-08-10] MEDS: SODIUM CHLORIDE 0.9% FLUSH 10 ML FLUSH IV FLUSH SCH ×4 (07:52→20:46)
[2017-08-10] MEDS ORDERED: amLODIPine BESYLATE 5 MG TAB PO SCH ×2 (09:00)
--- NOTE | 2017-08-10 09:47 | HHI.CCPN ---
Subjective Remarks/Hospital Course 77 y/o man with longstanding hypertension developed tingling in his right hand last evening. This did not resolve and he came to the ED. Severe hypertension and left basal ganglia bleed by CT scan. Started immediately on intravenous BP control and arrangements made [place] [facility] [place] On arrival his blood pressure is 187/98, P 64, RR 14. Tingling persists right side. 08/10: BP control improved but needs fine-tuning. Increase norvasc to BID, continue lisinopril and lopressor. Add HCTZ. Breathing comfortably, BNP 111. CXR yesterday with interstitial edema likely related to severe acute hypertension. Objective Vital Signs Date Time Temp Pulse Resp B/P (MAP) Pulse Ox O2 Delivery O2 Flow Rate FiO2 08/10/17 08:48 98 Nasal Cannula 3.00 08/10/17 08:00 97.4 72 24 177/79 (111) Intake and Output 08/10/17 08/10/17 08/11/17 08:00 16:00 00:00 Intake Total 400 ml Output Total 700 ml Balance -300 ml Result Diagram: 08/09/17 1120 08/10/17 0500 Objective Remarks Gen: Comfortable man, alert. Head: Atraumatic, normal. Neck: Supple, airway widely patent. Lungs: Clear, comfortable respiratory pattern. Good sue air entry. Heart: NL S1S2, bradycardia, no m,r. Neck veins full, not distended.. Abdomen: Large, soft, no guarding, no tenderness. Extremities: Warm, well perfused. No edema. Neuro: Motor 5/5 all 4 limbs. Sensory intact all 4 limbs. ROGELIO, tracks with eyes. O X 3, conversant with clear speech. A/P Assessment and Plan Assessment: 1. Hemorrhagic stroke. 2. Hypertensive emergency. 3. Sensation deficit right hand. 4. Interstitial edema. Plan: 1. Cardene iv to keep BP < 140/90, convert to PO antihypertensives. 2. Neuro checks. 3. No chemical DVT Px. 4. Pepcid. 5. SCDs. 5. Repeat Head CT in a.m -> no change. 6. Adjust oral bp control. 7. BNP. 8. Serial lung exam. Watch for hypertensive pulmonary edema, hypoxemia. Overall impression: Patient arrived critically ill having sustained an acute intracranial hemorrhage associated with uncontrolled hypertension. BP control improved but still requiring PRN meds. Oral meds adjusted. Aim for discharge when BP well controlled s/p hemorrhagic CVA. Be Lebron MD Aug 10, 2017 09:47
[2017-08-10] MEDS: niCARdipine INJ 25 MG in SODIUM CHLOR 0.9% 250 ML INJ 240 ML IV PRN ×4 (10:22)
[2017-08-10] MEDS: HYDROCHLOROTHIAZIDE 50 MG TAB PO SCH ×2 (11:25)
--- NOTE | 2017-08-10 12:08 | HHI.NSPN ---
(Judie Garibay) Note Status Status: Progress Note (Judie Garibay) Interval History Interval History Mr. Rodrigez is a 77 year old male who presented to [place] ED with complaints of numbness and tingling in his right upper and lower extremity. His blood pressure was severely elevated and the patient was placed on a antihypertensive drip. A CT head showed a left internal capsule hemorrhage. A neurosurgical evaluation was requested. The patient denies prior history of hypertension. He denies headaches, focal weakness, dysarthria, double vision, nausea, vomiting or seizures. 08/10: pt stable overnight. f/u CT Head completed this am, stable. remains on Cardene drip for bp control (Judie Garibay) Labs, Micro, & Vital Signs Results Date Time Temp Pulse Resp B/P (MAP) Pulse Ox O2 Delivery O2 Flow Rate FiO2 08/10/17 10:22 53 134/73 08/10/17 10:00 53 08/10/17 08:48 98 Nasal Cannula 3.00 08/10/17 08:00 97.4 72 24 177/79 (111) 97 08/10/17 08:00 55 08/10/17 07:00 98 Nasal Cannula 2.00 08/10/17 06:00 58 08/10/17 04:00 55 08/10/17 04:00 98.0 55 20 137/80 (99) 97 08/10/17 02:00 60 08/10/17 00:00 98.1 60 21 135/61 (85) 97 08/10/17 00:00 58 08/09/17 22:00 58 08/09/17 21:06 100 Nasal Cannula 3.00 08/09/17 20:00 98.2 59 22 122/74 (90) 98 08/09/17 20:00 58 08/09/17 19:00 99 Nasal Cannula 2.00 08/09/17 18:00 58 08/09/17 16:17 99 Nasal Cannula 3.00 08/09/17 16:00 98.8 59 20 157/84 (108) 98 08/09/17 16:00 59 08/09/17 15:41 76 128/75 08/09/17 14:45 90 124/70 08/09/17 14:00 98 Nasal Cannula 3.00 08/09/17 14:00 90 127/66 08/09/17 14:00 90 08/09/17 13:30 76 178/74 08/09/17 13:00 88 198/110 08/09/17 12:40 68 200/100 08/09/17 12:25 66 18 174/85 (114) 98 08/09/17 12:24 64 194/99 08/09/17 12:23 64 18 194/99 (130) 98 Nasal Cannula 08/09/17 12:17 62 200/88 08/09/17 12:11 66 18 200/88 (125) 98 Nasal Cannula 2.00 08/09/17 12:11 98 Nasal Cannula 2.00 Constitutional Vital Signs Date Time Temp Pulse Resp B/P (MAP) Pulse Ox O2 Delivery O2 Flow Rate FiO2 08/10/17 10:22 53 134/73 08/10/17 10:00 53 08/10/17 08:48 98 Nasal Cannula 3.00 08/10/17 08:00 97.4 72 24 177/79 (111) 97 08/10/17 08:00 55 08/10/17 07:00 98 Nasal Cannula 2.00 08/10/17 06:00 58 08/10/17 04:00 55 08/10/17 04:00 98.0 55 20 137/80 (99) 97 08/10/17 02:00 60 08/10/17 00:00 98.1 60 21 135/61 (85) 97 08/10/17 00:00 58 08/09/17 22:00 58 08/09/17 21:06 100 Nasal Cannula 3.00 08/09/17 20:00 98.2 59 22 122/74 (90) 98 08/09/17 20:00 58 08/09/17 19:00 99 Nasal Cannula 2.00 08/09/17 18:00 58 08/09/17 16:17 99 Nasal Cannula 3.00 08/09/17 16:00 98.8 59 20 157/84 (108) 98 08/09/17 16:00 59 08/09/17 15:41 76 128/75 08/09/17 14:45 90 124/70 08/09/17 14:00 98 Nasal Cannula 3.00 08/09/17 14:00 90 127/66 08/09/17 14:00 90 08/09/17 13:30 76 178/74 08/09/17 13:00 88 198/110 08/09/17 12:40 68 200/100 08/09/17 12:25 66 18 174/85 (114) 98 08/09/17 12:24 64 194/99 08/09/17 12:23 64 18 194/99 (130) 98 Nasal Cannula 08/09/17 12:17 62 200/88 08/09/17 12:11 66 18 200/88 (125) 98 Nasal Cannula 2.00 08/09/17 12:11 98 Nasal Cannula 2.00 (Judie Garibay) Review of Systems Constitutional: DENIES: Fever, Chills Cardiovascular: DENIES: Chest pain Neurologic: COMPLAINS OF: Paresthesias, DENIES: Headache, Localized weakness ( Judie Garibay) Physical Exam Mr. Rodrigez is alert, awake and oriented to time, place and person. Speech is fluent. Conversing well. Cranial nerve examination demonstrates the pupils to be equal, round, and reactive to light. Extra-ocular movements are intact. Facial motor and sensory function are normal and symmetrical. Neck is soft and supple. Muscle strength is 5/5 in all muscle groups of both upper extremities including deltoid, biceps, triceps, brachioradialis, wrist extension and certified travel counselor. In the lower extremities, strength is 5/5 in both iliopsoas, quadriceps, hamstrings, plantar flexion, dorsiflexion, and extensor hallicus longus. Sensory examination is intact to light touch and sharp/dull discrimination in both the upper and lower extremities, symmetrically. Deep tendon reflexes are 2+ and symmetrical in the biceps, triceps, and brachioradialis, bilaterally, in the upper extremities. In the lower extremities , the patellar and Achilles are 2+, bilaterally. There is a bilateral plantar flexion response. Cerebellar examination is intact to [id number] test (Judie Garibay) Mr. Rodrigez is alert, awake and oriented to time, place and person. Speech is fluent. Conversing well. Cranial nerve examination demonstrates the pupils to be equal, round, and reactive to light. Extra-ocular movements are intact. Facial motor and sensory function are normal and symmetrical. Neck is soft and supple. Muscle strength is 5/5 in all muscle groups of both upper extremities including deltoid, biceps, triceps, brachioradialis, wrist extension and certified travel counselor. In the lower extremities, strength is 5/5 in both iliopsoas, quadriceps, hamstrings, plantar flexion, dorsiflexion, and extensor hallicus longus. Sensory examination is intact to light touch in both the upper and lower extremities, symmetrically. reports of mild paresthesias in his right hand Deep tendon reflexes are 2+ and symmetrical in the biceps, triceps, and brachioradialis, bilaterally, in the upper extremities. In the lower extremities , the patellar and Achilles are 2+, bilaterally. There is a bilateral plantar flexion response. Cerebellar examination is intact to [id number] test (Alex Tate MD) Medications Current Medications Current Medications Medications (Trade) Dose Ordered Sig/Maco Route PRN Reason Start Time Stop Time Status Last Admin Dose Admin Sodium Chloride (NS Flush) 2 ml UNSCH PRN IVF FLUSH AFTER USING IV ACCESS 08/09/17 11:15 Nicardipine HCl 25 mg/Sodium Chloride 250 ml @ 50 mls/hr TITRATE PRN IV Blood pressure management 08/09/17 12:00 08/10/17 10:22 Sodium Chloride 1,000 ml @ 10 mls/hr Q24H IV 08/09/17 11:58 08/09/17 14:00 Sodium Chloride (NS Flush) 2 ml UNSCH PRN IV FLUSH FLUSH AFTER USING IV ACCESS 08/09/17 12:00 Sodium Chloride (NS Flush) 2 ml BID IV FLUSH 08/09/17 21:00 08/10/17 07:52 Acetaminophen (Tylenol) 650 mg Q6H PRN PO PAIN 1-10 AND/OR FEVER >101F 08/09/17 12:00 Morphine Sulfate (Morphine Inj) 2 mg Q2H PRN IV PUSH Headache SCALE 6 TO 10 08/09/17 12:00 Pantoprazole Sodium (Protonix) 40 mg DAILY PO 08/10/17 09:00 08/10/17 07:51 Ondansetron HCl (Zofran Inj) 4 mg Q6H PRN IV PUSH NAUSEA OR VOMITING 08/09/17 12:00 Albuterol/ Ipratropium (Duoneb Neb) 1 ampule Q4HR NEB PRN INH WHEEZING 08/09/17 16:00 Miscellaneous Information 1 Q361D XX 08/09/17 12:00 Chlorhexidine Gluconate (Chlorhexidine 2% Cloth) 3 pack Taper DAILY@04 TOP 08/10/17 04:00 08/06/18 03:59 08/10/17 04:00 Chlorhexidine Gluconate (Chlorhexidine 2% Cloth) 3 pack UNSCH PRN TOP HYGIENIC CARE 08/09/17 12:00 Metoprolol Tartrate (Lopressor) 50 mg Q12HR PO 08/09/17 13:15 08/09/17 15:13 Lisinopril (Prinivil) 5 mg Q12HR PO 08/09/17 13:15 08/10/17 07:51 Amlodipine Besylate (Norvasc) 5 mg BID PO 08/10/17 21:00 Hydrochlorothiazide (Hydrodiuril) 50 mg DAILY PO 08/10/17 11:00 08/10/17 11:25 Tamsulosin HCl (Flomax) 0.4 mg HS PO 08/10/17 21:00 (Judie Garibay) Current Medications Current Medications Sodium Chloride (NS Flush) 2 ml UNSCH PRN IVF FLUSH AFTER USING IV ACCESS; Start 08/09/17 at 11:15 Esmolol HCl/ Sodium Chloride 250 ml @ 39 mls/hr TITRATE PRN IV Blood Pressure Management Last administered on 08/09/17 11:55; Start 08/09/17 at 11:45; Stop 08/10/17 at 09:42; Status DC Nicardipine HCl 25 mg/Sodium Chloride 250 ml @ 50 mls/hr TITRATE PRN IV Blood pressure management Last administered on 08/10/17 10:22; Start 08/09/17 at 12: 00 Sodium Chloride 1,000 ml @ 10 mls/hr Q24H IV Last administered on 08/09/17 14 :00; Start 08/09/17 at 11:58; Stop 08/11/17 at 16:10; Status DC Sodium Chloride (NS Flush) 2 ml UNSCH PRN IV FLUSH FLUSH AFTER USING IV ACCESS ; Start 08/09/17 at 12:00 Sodium Chloride (NS Flush) 2 ml BID IV FLUSH Last administered on 08/11/17 08: 01; Start 08/09/17 at 21:00 Acetaminophen (Tylenol) 650 mg Q6H PRN PO PAIN 1-10 AND/OR FEVER >101F; Start 08/09/17 at 12:00 Morphine Sulfate (Morphine Inj) 2 mg Q2H PRN IV PUSH Headache SCALE 6 TO 10; Start 08/09/17 at 12:00 Pantoprazole Sodium (Protonix) 40 mg DAILY PO Last administered on 08/11/17 08 :01; Start 08/10/17 at 09:00 Ondansetron HCl (Zofran Inj) 4 mg Q6H PRN IV PUSH NAUSEA OR VOMITING; Start at 12:00 Albuterol/ Ipratropium (Duoneb Neb) 1 ampule Q4HR NEB PRN INH WHEEZING; Start 08/09/17 at 16:00 Miscellaneous Information 1 Q361D XX ; Start 08/09/17 at 12:00 Chlorhexidine Gluconate (Chlorhexidine 2% Cloth) 3 pack Taper DAILY@04 TOP Last administered on 08/10/17 04:00; Start 08/10/17 at 04:00; Stop 08/06/18 at 03:59 Chlorhexidine Gluconate (Chlorhexidine 2% Cloth) 3 pack UNSCH PRN TOP HYGIENIC CARE; Start 08/09/17 at 12:00 Metoprolol Tartrate (Lopressor) 50 mg Q12HR PO Last administered on 08/09/17 15:13; Start 08/09/17 at 13:15 Lisinopril (Prinivil) 5 mg Q12HR PO Last administered on 08/11/17 08:01; Start 08/09/17 at 13:15; Stop 08/11/17 at 16:10; Status DC Amlodipine Besylate (Norvasc) 5 mg DAILY PO Last administered on 08/10/17 07: 51; Start 08/10/17 at 09:00; Stop 08/10/17 at 09:42; Status DC Amlodipine Besylate (Norvasc) 5 mg BID PO Last administered on 08/11/17 08:01 ; Start 08/10/17 at 21:00 Hydrochlorothiazide (Hydrodiuril) 50 mg DAILY PO Last administered on 08:00; Start 08/10/17 at 11:00 Tamsulosin HCl (Flomax) 0.4 mg HS PO Last administered on 08/10/17 20:46; Start 08/10/17 at 21:00 Lisinopril (Prinivil) 10 mg Q12H PO ; Start 08/11/17 at 21:00 (Alex Tate MD) Medical Decision Making MDM Remarks 77 y/o male c/o right extremity paresthesias, hypertensive urgency small left hypertensive basal ganglia hemorrhage (Judie Garibay) MDM Remarks Last [address] 08/10/17 0500 Signed Impressions: Service Date/Time: Saturday, August 10, 2017 04:33 - CONCLUSION: No change in left basal ganglia hemorrhage. 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 neuro checks in a serial fashion. Continue Nonoperative treatment Pulmonary.aggressive pulmonary toilette, nasotracheal suction, and breathing treatments with nebulizers. Cardene drip for BP control The patient has comorbidities which increase the risk for developing complications. Nutrition. Oral diet Renal. monitor closely urine output, BUN and creatinine Endocrine. Monitor serial Acu checks and SSI as needed in detail ID monitor for signs of infection Protonix for stress ulcer prophylaxis Denzel hose and SCD's for DVT prophylaxis. The exam, history, and the medical decision-making described in the above note were completed with the assistance of the mid-level provider. I reviewed and agree with the findings presented. I attest that I had a [id number] encounter with the patient on the same day, and personally performed and documented my assessment and findings in the medical record. (Alex Tate MD) Judie Garibay Aug 10, 2017 12:08 Alex Tate MD Aug 11, 2017 18:59
[2017-08-10] MEDS: SODIUM CHLOR 0.9% 1000 ML INJ 1,000 ML IV SCH ×2 (15:45)
[2017-08-10] MEDS: TAMSULOSIN HCL 0.4 MG CAP PO SCH ×2 (20:46)
[2017-08-10] MEDS: amLODIPine BESYLATE 5 MG TAB PO SCH ×2 (20:48)
[2017-08-11] VITALS (12 sets, daily range): BP systolic 131–159; BP diastolic 65–81; PULSE 54–71; RESP 14–26; TEMP 97.5–98.4; O2SAT 97–100
[2017-08-11 06:42] LABS: CALCIUM 8.5 MG/DL (8.5-10.1); CREATININE 1.43 MG/DL (0.60-1.30)
[2017-08-11] MEDS: HYDROCHLOROTHIAZIDE 50 MG TAB PO SCH ×2 (08:00)
[2017-08-11] MEDS: METOPROLOL TARTRATE 50 MG TAB PO SCH ×4 (08:01→21:21)
[2017-08-11] MEDS: LISINOPRIL 5 MG TAB PO SCH ×2 (08:01)
[2017-08-11] MEDS: amLODIPine BESYLATE 5 MG TAB PO SCH ×4 (08:01→21:21)
[2017-08-11] MEDS: PANTOPRAZOLE SOD 40 MG DELAYED RELEASE TAB PO SCH ×2 (08:01)
[2017-08-11] MEDS: SODIUM CHLORIDE 0.9% FLUSH 10 ML FLUSH IV FLUSH SCH ×4 (08:01→21:25)
--- NOTE | 2017-08-11 08:22 | HHI.CCPN ---
Subjective Remarks/Hospital Course 77 y/o man with longstanding hypertension developed tingling in his right hand last evening. This did not resolve and he came to the ED. Severe hypertension and left basal ganglia bleed by CT scan. Started immediately on intravenous BP control and arrangements made to ship to [facility]. On arrival his blood pressure is 187/98, P 64, RR 14. Tingling persists right side. 08/10: BP control improved but needs fine-tuning. Increase norvasc to BID, continue lisinopril and lopressor. Add HCTZ. Breathing comfortably, BNP 111. CXR yesterday with interstitial edema likely related to severe acute hypertension. 08/11: Required cardene infusion for BP control last evening. No neurological changes. Objective Vital Signs Date Time Temp Pulse Resp B/P (MAP) Pulse Ox O2 Delivery O2 Flow Rate FiO2 08/11/17 08:08 100 Nasal Cannula 5.00 08/11/17 06:00 54 08/11/17 04:00 98.0 15 140/65 (90) Intake and Output 08/11/17 08/11/17 08/12/17 08:00 16:00 00:00 Intake Total 360 ml Output Total 900 ml Balance -540 ml Result Diagram: 08/09/17 1120 08/11/17 0537 Objective Remarks Gen: Comfortable man, alert. Head: Atraumatic, normal. Neck: Supple, airway widely patent. Lungs: Clear, comfortable respiratory pattern. Good sue air entry. No adventitious sounds. Heart: NL S1S2, bradycardia, no m,r. Neck veins full, not distended.. Abdomen: Large, soft, no guarding, no tenderness. Extremities: Warm, well perfused. No edema. Neuro: Motor 5/5 all 4 limbs. Sensory intact all 4 limbs. ROGELIO, tracks with eyes. O X 3, conversant with clear speech. A/P Assessment and Plan Assessment: 1. Hemorrhagic stroke. 2. Hypertensive emergency. 3. Sensation deficit right hand. 4. Interstitial edema. Plan: 1. Cardene iv to keep BP < 140/90, convert to PO antihypertensives. 2. Neuro checks. 3. No chemical DVT Px. 4. Pepcid. 5. SCDs. 5. Repeat Head CT in a.m -> no change. 6. Adjust oral bp control. 7. BNP. 8. Serial lung exam. Watch for hypertensive pulmonary edema, hypoxemia. 9. Wean off cardene. Overall impression: Patient arrived critically ill having sustained an acute intracranial hemorrhage associated with uncontrolled hypertension. BP control improved but still requiring PRN meds. Oral meds again adjusted. Aim for discharge when BP well controlled s/p hemorrhagic CVA. Be Lebron MD Aug 11, 2017 08:22
--- NOTE | 2017-08-11 10:01 | HHI.NSPN ---
(Judie Garibay) Note Status Status: Progress Note (Judie Garibay) Interval History Interval History Mr. Rodrigez is a 77 year old male who presented to [place] ED with complaints of numbness and tingling in his right upper and lower extremity. His blood pressure was severely elevated and the patient was placed on a antihypertensive drip. A CT head showed a left internal capsule hemorrhage. A neurosurgical evaluation was requested. The patient denies prior history of hypertension. He denies headaches, focal weakness, dysarthria, double vision, nausea, vomiting or seizures. 08/10: pt stable overnight. f/u CT Head completed this am, stable. remains on Cardene drip for bp control 08/11: off nicardipine drip, right upper extremity paresthesia resolving, denies new focal weakness, vomiting, seizures (Judie Garibay) Labs, Micro, & Vital Signs Results Date Time Temp Pulse Resp B/P (MAP) Pulse Ox O2 Delivery O2 Flow Rate FiO2 08/11/17 08:08 100 Nasal Cannula 5.00 08/11/17 06:00 54 08/11/17 04:00 57 08/11/17 04:00 98.0 56 15 140/65 (90) 100 08/11/17 02:00 66 08/11/17 00:00 71 08/11/17 00:00 97.9 71 22 131/74 (93) 98 08/10/17 22:00 64 08/10/17 20:32 97 Nasal Cannula 3.00 08/10/17 20:00 97.8 59 20 130/69 (89) 98 08/10/17 20:00 59 08/10/17 19:00 97 Nasal Cannula 2.00 08/10/17 18:00 63 08/10/17 16:00 97.5 59 26 155/80 (105) 97 08/10/17 16:00 59 08/10/17 14:00 54 08/10/17 12:00 98.0 55 26 140/84 (102) 99 08/10/17 12:00 55 08/10/17 10:22 53 134/73 08/10/17 10:00 53 Constitutional Vital Signs Date Time Temp Pulse Resp B/P (MAP) Pulse Ox O2 Delivery O2 Flow Rate FiO2 08/11/17 08:08 100 Nasal Cannula 5.00 08/11/17 06:00 54 08/11/17 04:00 57 08/11/17 04:00 98.0 56 15 140/65 (90) 100 08/11/17 02:00 66 08/11/17 00:00 71 08/11/17 00:00 97.9 71 22 131/74 (93) 98 08/10/17 22:00 64 08/10/17 20:32 97 Nasal Cannula 3.00 08/10/17 20:00 97.8 59 20 130/69 (89) 98 08/10/17 20:00 59 08/10/17 19:00 97 Nasal Cannula 2.00 08/10/17 18:00 63 08/10/17 16:00 97.5 59 26 155/80 (105) 97 08/10/17 16:00 59 08/10/17 14:00 54 08/10/17 12:00 98.0 55 26 140/84 (102) 99 08/10/17 12:00 55 08/10/17 10:22 53 134/73 08/10/17 10:00 53 (Judie Garibay) Review of Systems Constitutional: DENIES: Fever, Chills Cardiovascular: DENIES: Chest pain Neurologic: COMPLAINS OF: Paresthesias, DENIES: Headache, Localized weakness ( Judie Garibay) Physical Exam Mr. Rodrigez is alert, awake and oriented to time, place and person. Speech is fluent. Conversing well. Cranial nerve examination demonstrates the pupils to be equal, round, and reactive to light. Extra-ocular movements are intact. Facial motor and sensory function are normal and symmetrical. Neck is soft and supple. Muscle strength is 5/5 in all muscle groups of both upper extremities including deltoid, biceps, triceps, brachioradialis, wrist extension and production checker. In the lower extremities, strength is 5/5 in both iliopsoas, quadriceps, hamstrings, plantar flexion, dorsiflexion, and extensor hallicus longus. Sensory examination is intact to light touch in both the upper and lower extremities, symmetrically. reports of mild paresthesias in his right hand Deep tendon reflexes are 2+ and symmetrical in the biceps, triceps, and brachioradialis, bilaterally, in the upper extremities. In the lower extremities , the patellar and Achilles are 2+, bilaterally. There is a bilateral plantar flexion response. Cerebellar examination is intact to [id number] test (Judie Garibay) Mr. Rodrigez is alert, awake and oriented to time, place and person. Speech is fluent. Conversing well. Cranial nerve examination demonstrates the pupils to be equal, round, and reactive to light. Extra-ocular movements are intact. Facial motor and sensory function are normal and symmetrical. Neck is soft and supple. Muscle strength is 5/5 in all muscle groups of both upper extremities including deltoid, biceps, triceps, brachioradialis, wrist extension and production checker. In the lower extremities, strength is 5/5 in both iliopsoas, quadriceps, hamstrings, plantar flexion, dorsiflexion, and extensor hallicus longus. Sensory examination is intact to light touch in both the upper and lower extremities, symmetrically. reports of mild paresthesias in his right hand Deep tendon reflexes are 2+ and symmetrical in the biceps, triceps, and brachioradialis, bilaterally, in the upper extremities. In the lower extremities , the patellar and Achilles are 2+, bilaterally. There is a bilateral plantar flexion response. Cerebellar examination is intact to [id number] test (Alex Tate MD) Medications Current Medications Current Medications Medications (Trade) Dose Ordered Sig/Maco Route PRN Reason Start Time Stop Time Status Last Admin Dose Admin Sodium Chloride (NS Flush) 2 ml UNSCH PRN IVF FLUSH AFTER USING IV ACCESS 08/09/17 11:15 Nicardipine HCl 25 mg/Sodium Chloride 250 ml @ 50 mls/hr TITRATE PRN IV Blood pressure management 08/09/17 12:00 08/10/17 10:22 Sodium Chloride 1,000 ml @ 10 mls/hr Q24H IV 08/09/17 11:58 08/09/17 14:00 Sodium Chloride (NS Flush) 2 ml UNSCH PRN IV FLUSH FLUSH AFTER USING IV ACCESS 08/09/17 12:00 Sodium Chloride (NS Flush) 2 ml BID IV FLUSH 08/09/17 21:00 08/11/17 08:01 Acetaminophen (Tylenol) 650 mg Q6H PRN PO PAIN 1-10 AND/OR FEVER >101F 08/09/17 12:00 Morphine Sulfate (Morphine Inj) 2 mg Q2H PRN IV PUSH Headache SCALE 6 TO 10 08/09/17 12:00 Pantoprazole Sodium (Protonix) 40 mg DAILY PO 08/10/17 09:00 08/11/17 08:01 Ondansetron HCl (Zofran Inj) 4 mg Q6H PRN IV PUSH NAUSEA OR VOMITING 08/09/17 12:00 Albuterol/ Ipratropium (Duoneb Neb) 1 ampule Q4HR NEB PRN INH WHEEZING 08/09/17 16:00 Miscellaneous Information 1 Q361D XX 08/09/17 12:00 Chlorhexidine Gluconate (Chlorhexidine 2% Cloth) 3 pack Taper DAILY@04 TOP 08/10/17 04:00 08/06/18 03:59 08/10/17 04:00 Chlorhexidine Gluconate (Chlorhexidine 2% Cloth) 3 pack UNSCH PRN TOP HYGIENIC CARE 08/09/17 12:00 Metoprolol Tartrate (Lopressor) 50 mg Q12HR PO 08/09/17 13:15 08/09/17 15:13 Lisinopril (Prinivil) 5 mg Q12HR PO 08/09/17 13:15 08/11/17 08:01 Amlodipine Besylate (Norvasc) 5 mg BID PO 08/10/17 21:00 08/11/17 08:01 Hydrochlorothiazide (Hydrodiuril) 50 mg DAILY PO 08/10/17 11:00 08/11/17 08:00 Tamsulosin HCl (Flomax) 0.4 mg HS PO 08/10/17 21:00 08/10/17 20:46 (Judie Garibay) Current Medications Current Medications Sodium Chloride (NS Flush) 2 ml UNSCH PRN IVF FLUSH AFTER USING IV ACCESS; Start 08/09/17 at 11:15 Esmolol HCl/ Sodium Chloride 250 ml @ 39 mls/hr TITRATE PRN IV Blood Pressure Management Last administered on 08/09/17t 11:55; Start 08/09/17 at 11:45; Stop 08/10/17 at 09:42; Status DC Nicardipine HCl 25 mg/Sodium Chloride 250 ml @ 50 mls/hr TITRATE PRN IV Blood pressure management Last administered on 08/10/17 10:22; Start 08/09/17 at 12: 00 Sodium Chloride 1,000 ml @ 10 mls/hr Q24H IV Last administered on 08/09/17 14 :00; Start 08/09/17 at 11:58; Stop 08/11/17 at 16:10; Status DC Sodium Chloride (NS Flush) 2 ml UNSCH PRN IV FLUSH FLUSH AFTER USING IV ACCESS ; Start 08/09/17 at 12:00 Sodium Chloride (NS Flush) 2 ml BID IV FLUSH Last administered on 08/11/17 08: 01; Start 08/09/17 at 21:00 Acetaminophen (Tylenol) 650 mg Q6H PRN PO PAIN 1-10 AND/OR FEVER >101F; Start 08/09/17 at 12:00 Morphine Sulfate (Morphine Inj) 2 mg Q2H PRN IV PUSH Headache SCALE 6 TO 10; Start 08/09/17 at 12:00 Pantoprazole Sodium (Protonix) 40 mg DAILY PO Last administered on 08/11/17 08 :01; Start 08/10/17 at 09:00 Ondansetron HCl (Zofran Inj) 4 mg Q6H PRN IV PUSH NAUSEA OR VOMITING; Start at 12:00 Albuterol/ Ipratropium (Duoneb Neb) 1 ampule Q4HR NEB PRN INH WHEEZING; Start 08/09/17 at 16:00 Miscellaneous Information 1 Q361D XX ; Start 08/09/17 at 12:00 Chlorhexidine Gluconate (Chlorhexidine 2% Cloth) 3 pack Taper DAILY@04 TOP Last administered on 08/10/17 04:00; Start 08/10/17 at 04:00; Stop 08/06/18 at 03:59 Chlorhexidine Gluconate (Chlorhexidine 2% Cloth) 3 pack UNSCH PRN TOP HYGIENIC CARE; Start 08/09/17 at 12:00 Metoprolol Tartrate (Lopressor) 50 mg Q12HR PO Last administered on 08/09/17 15:13; Start 08/09/17 at 13:15 Lisinopril (Prinivil) 5 mg Q12HR PO Last administered on 08/11/17 08:01; Start 08/09/17 at 13:15; Stop 08/11/17 at 16:10; Status DC Amlodipine Besylate (Norvasc) 5 mg DAILY PO Last administered on 08/10/17 07: 51; Start 08/10/17 at 09:00; Stop 08/10/17 at 09:42; Status DC Amlodipine Besylate (Norvasc) 5 mg BID PO Last administered on 08/11/17 08:01 ; Start 08/10/17 at 21:00 Hydrochlorothiazide (Hydrodiuril) 50 mg DAILY PO Last administered on 08:00; Start 08/10/17 at 11:00 Tamsulosin HCl (Flomax) 0.4 mg HS PO Last administered on 08/10/17 20:46; Start 08/10/17 at 21:00 Lisinopril (Prinivil) 10 mg Q12H PO ; Start 08/11/17 at 21:00 (Alex Tate MD) Medical Decision Making MDM Remarks 77 y/o male c/o right extremity paresthesias, hypertensive urgency small left hypertensive basal ganglia hemorrhage, stable on f/u CT Head 08/10 (Judie Garibay) MDM Remarks Last [address] 08/10/17 0500 Signed Impressions: Service Date/Time: Thursday, August 10, 2017 04:33 - CONCLUSION: No change in left basal ganglia hemorrhage. Venkata Morgan MD (Alex Tate MD) Plan Plan Remarks cont hypertensive mgt per medical physician, clear from N[facility] standpoint to transfer out of [facility] OOB cont nonchemical dvt prophylaxis with SCD and TEDs for dvt prophylaxis in view of ICH (Judie Garibay) Attending Statement Neuro. neuro checks in a serial fashion. Continue Nonoperative treatment Pulmonary.aggressive pulmonary toilette, nasotracheal suction, and breathing treatments with nebulizers. Cardene drip for BP control The patient has comorbidities which increase the risk for developing complications. Nutrition. Oral diet Renal. monitor closely urine output, BUN and creatinine Endocrine. Monitor serial Acu checks and SSI as needed in detail ID monitor for signs of infection Protonix for stress ulcer prophylaxis Denzel hose and SCD's for DVT prophylaxis. The exam, history, and the medical decision-making described in the above note were completed with the assistance of the mid-level provider. I reviewed and agree with the findings presented. I attest that I had a [id number] encounter with the patient on the same day, and personally performed and documented my assessment and findings in the medical record. (Alex Tate MD) Judie Garibay Aug 11, 2017 10:01 Alex Tate MD Aug 11, 2017 19:01
[2017-08-11] MEDS: SODIUM CHLOR 0.9% 1000 ML INJ 1,000 ML IV SCH ×2 (14:19)
[2017-08-11] MEDS: LISINOPRIL 10 MG TAB PO SCH ×2 (21:21)
[2017-08-11] MEDS: TAMSULOSIN HCL 0.4 MG CAP PO SCH ×2 (21:21)
[2017-08-12] VITALS: BP 120/62; PULSE 59; RESP 20; TEMP 97.6; O2SAT 93
[2017-08-12 04:00] VITALS: BP 146/76; PULSE 55; RESP 20; TEMP 97.4; O2SAT 96
[2017-08-12 04:11] VITALS: O2SAT 93
[2017-08-12 07:35] VITALS: BP 138/75; PULSE 55; RESP 18; TEMP 97.4; O2SAT 98
[2017-08-12] MEDS: amLODIPine BESYLATE 5 MG TAB PO SCH ×2 (09:10)
[2017-08-12] MEDS: METOPROLOL TARTRATE 50 MG TAB PO SCH ×2 (09:10)
[2017-08-12] MEDS: HYDROCHLOROTHIAZIDE 50 MG TAB PO SCH ×2 (09:10)
[2017-08-12] MEDS: PANTOPRAZOLE SOD 40 MG DELAYED RELEASE TAB PO SCH ×2 (09:10)
[2017-08-12] MEDS: LISINOPRIL 10 MG TAB PO SCH ×2 (09:10)
[2017-08-12] MEDS: SODIUM CHLORIDE 0.9% FLUSH 10 ML FLUSH IV FLUSH SCH ×2 (09:10)
[2017-08-12] MEDS ORDERED: FLUTICASONE PROPIONATE 50 MCG/ACT 16 GM NASAL SPRAY NASAL SCH ×2 (11:00)
[2017-08-12] MEDS: hydrALAZINE HCL 25 MG TAB PO SCH ×4 (11:20→15:22)
[2017-08-12 11:35] VITALS: BP 123/64; PULSE 54; RESP 18; TEMP 97.1; O2SAT 96
--- NOTE | 2017-08-12 12:00 | HHI.NSPN ---
Note Status Status: Progress Note Interval History Interval History Mr. Rodrigez is a 77 year old male who presented to [place] ED with complaints of numbness and tingling in his right upper and lower extremity. His blood pressure was severely elevated and the patient was placed on a antihypertensive drip. A CT head showed a left internal capsule hemorrhage. A neurosurgical evaluation was requested. The patient denies prior history of hypertension. He denies headaches, focal weakness, dysarthria, double vision, nausea, vomiting or seizures. 08/10: pt stable overnight. f/u CT Head completed this am, stable. remains on Cardene drip for bp control 08/11: off nicardipine drip, right upper extremity paresthesia resolving, denies new focal weakness, vomiting, seizures 08/12: ambulating with RW, reports mild dragging of right leg. paresthesias improving. blood pressure better controlled. Labs, Micro, & Vital Signs Results Date Time Temp Pulse Resp B/P (MAP) Pulse Ox O2 Delivery O2 Flow Rate FiO2 08/12/17 11:35 97.1 54 18 123/64 (83) 96 08/12/17 09:05 21 08/12/17 07:35 97.4 55 18 138/75 (96) 98 08/12/17 04:11 93 08/12/17 04:00 97.4 55 20 146/76 (99) 96 08/12/17 00:00 97.6 59 20 120/62 (81) 93 08/11/17 20:00 97.8 62 20 145/81 (102) 97 08/11/17 19:47 98.1 59 22 149/79 (102) 97 08/11/17 16:00 65 08/11/17 16:00 98.4 57 26 159/79 (105) 97 08/11/17 14:00 55 08/11/17 12:00 97.5 57 14 148/81 (103) 99 08/11/17 12:00 60 08/13/17 07:00 Intake Total 480 ml Output Total 400 ml Balance 80 ml Constitutional Vital Signs Date Time Temp Pulse Resp B/P (MAP) Pulse Ox O2 Delivery O2 Flow Rate FiO2 08/12/17 11:35 97.1 54 18 123/64 (83) 96 08/12/17 09:05 21 08/12/17 07:35 97.4 55 18 138/75 (96) 98 08/12/17 04:11 93 08/12/17 04:00 97.4 55 20 146/76 (99) 96 08/12/17 00:00 97.6 59 20 120/62 (81) 93 08/11/17 20:00 97.8 62 20 145/81 (102) 97 08/11/17 19:47 98.1 59 22 149/79 (102) 97 08/11/17 16:00 65 08/11/17 16:00 98.4 57 26 159/79 (105) 97 08/11/17 14:00 55 08/11/17 12:00 97.5 57 14 148/81 (103) 99 08/11/17 12:00 60 08/13/17 07:00 Intake Total 480 ml Output Total 400 ml Balance 80 ml Review of Systems Constitutional: DENIES: Fever Neurologic: COMPLAINS OF: Abnormal gait (mild right leg dragging), Paresthesias , DENIES: Headache Physical Exam Mr. Rodrigez is alert, awake and oriented to time, place and person. Speech is fluent. Conversing well. Cranial nerve examination: pupils equal, round, and reactive to light. Extra- ocular movements are intact. Facial motor and sensory function are normal and symmetrical. Neck is soft and supple. Muscle strength is 5/5 in all muscle groups of both upper extremities including deltoid, biceps, triceps, brachioradialis, wrist extension and naval marine engineer. In the lower extremities, strength is 5/5 in both iliopsoas, quadriceps, hamstrings, plantar flexion, dorsiflexion, and extensor hallicus longus. Sensory examination is intact to light touch in both the upper and lower extremities, symmetrically. reports of mild paresthesias in his right hand Deep tendon reflexes are 2+ and symmetrical in the biceps, triceps, and brachioradialis, bilaterally, in the upper extremities. In the lower extremities , the patellar and Achilles are 2+, bilaterally. There is a bilateral plantar flexion response. Cerebellar examination is intact to [id number] test Gait: ambulating with rolling walker, mild dragging of right leg noted Medications Current Medications Current Medications Medications (Trade) Dose Ordered Sig/Maco Route PRN Reason Start Time Stop Time Status Last Admin Dose Admin Sodium Chloride (NS Flush) 2 ml UNSCH PRN IV FLUSH FLUSH AFTER USING IV ACCESS 08/09/17 12:00 Sodium Chloride (NS Flush) 2 ml BID IV FLUSH 08/09/17 21:00 08/12/17 09:10 Acetaminophen (Tylenol) 650 mg Q6H PRN PO PAIN 1-10 AND/OR FEVER >101F 08/09/17 12:00 Morphine Sulfate (Morphine Inj) 2 mg Q2H PRN IV PUSH Headache SCALE 6 TO 10 08/09/17 12:00 Pantoprazole Sodium (Protonix) 40 mg DAILY PO 08/10/17 09:00 08/12/17 09:10 Ondansetron HCl (Zofran Inj) 4 mg Q6H PRN IV PUSH NAUSEA OR VOMITING 08/09/17 12:00 Albuterol/ Ipratropium (Duoneb Neb) 1 ampule Q4HR NEB PRN INH WHEEZING 08/09/17 16:00 Metoprolol Tartrate (Lopressor) 50 mg Q12HR PO 08/09/17 13:15 08/12/17 09:10 Amlodipine Besylate (Norvasc) 5 mg BID PO 08/10/17 21:00 08/12/17 09:10 Hydrochlorothiazide (Hydrodiuril) 50 mg DAILY PO 08/10/17 11:00 08/12/17 09:10 Tamsulosin HCl (Flomax) 0.4 mg HS PO 08/10/17 21:00 08/11/17 21:21 Lisinopril (Prinivil) 10 mg Q12H PO 08/11/17 21:00 08/12/17 09:10 Hydralazine HCl (Apresoline) 25 mg Q8HR PO 08/12/17 10:00 08/12/17 11:20 Fluticasone Propionate (Flonase [place] Spr) 1 spray BID NASAL 08/12/17 11:00 08/12/17 11:30 Medical Decision Making MDM Remarks 77 y/o male c/o right extremity paresthesias, hypertensive urgency, improved. bp better controlled small left hypertensive basal ganglia hemorrhage, stable on f/u CT Head 08/10 Plan Plan Remarks cont hypertensive mgt per medical physician, cont therapy and rehab cont nonchemical dvt prophylaxis with SCD and TEDs in view of ICH ok to dc from NRS standpoint dw pt to ensure close f/u of blood pressure upon discharge and f/u PCP Judie Garibay Aug 12, 2017 12:00
[2017-08-12] MEDS ORDERED: LISI10TA3 PO ×2 (13:06)
[2017-08-12] MEDS ORDERED: METO-309 PO ×2 (13:06)
[2017-08-12] MEDS ORDERED: AMLO5 PO ×2 (13:06)
[2017-08-12] MEDS ORDERED: HYDR-3799 PO ×2 (13:06)
[2017-08-12] MEDS ORDERED: HYDR25TA5 PO ×2 (13:06)
--- NOTE | 2017-08-12 13:08 | HHI.DCPOC ---
Discharge Care Plan Diagnosis: (1) Hypertensive emergency (2) Intracranial hemorrhage (3) Renal insufficiency (4) Stroke, hemorrhagic Goals to Promote Your Health * To prevent worsening of your condition and complications * To maintain your health at the optimal level Directions to Meet Your Goals Take your medications as prescribed Follow your dietary instruction Follow activity as directed Keep your appointments as scheduled Take your immunizations and boosters as scheduled If your symptoms worsen call your PCP, if no PCP go to Urgent Care Center or Emergency Room Smoking is Dangerous to Your Health. Avoid second hand smoke Call the 24-hour hour crisis hotline for domestic abuse at Corrina Amaya MD Aug 12, 2017 13:08
--- NOTE | 2017-08-12 13:08 | HHI.DCPOC ---
Discharge Care Plan Diagnosis: (1) Hypertensive emergency (2) Intracranial hemorrhage (3) Renal insufficiency (4) Stroke, hemorrhagic Goals to Promote Your Health * To prevent worsening of your condition and complications * To maintain your health at the optimal level Directions to Meet Your Goals Take your medications as prescribed Follow your dietary instruction Follow activity as directed Keep your appointments as scheduled Take your immunizations and boosters as scheduled If your symptoms worsen call your PCP, if no PCP go to Urgent Care Center or Emergency Room Smoking is Dangerous to Your Health. Avoid second hand smoke Call the 24-hour hour crisis hotline for domestic abuse at Corrina Amaya MD Aug 12, 2017 13:08
--- NOTE | 2017-08-12 13:08 | HHI.DCPOC ---
Discharge Care Plan Diagnosis: (1) Hypertensive emergency (2) Intracranial hemorrhage (3) Renal insufficiency (4) Stroke, hemorrhagic Goals to Promote Your Health * To prevent worsening of your condition and complications * To maintain your health at the optimal level Directions to Meet Your Goals Take your medications as prescribed Follow your dietary instruction Follow activity as directed Keep your appointments as scheduled Take your immunizations and boosters as scheduled If your symptoms worsen call your PCP, if no PCP go to Urgent Care Center or Emergency Room Smoking is Dangerous to Your Health. Avoid second hand smoke Call the 24-hour hour crisis hotline for domestic abuse at Corrina Amaya MD Aug 12, 2017 13:08
--- NOTE | 2017-08-12 13:09 | HHI.DS ---
Discharge Summary Admission Date Aug 09, 2017 at 11:53 Discharge Date: Aug 12, 2017 Admitting Diagnosis HYPERTENSIVE EMERGENCY, ICH (1) Stroke, hemorrhagic ICD Code: I61.9 - Nontraumatic intracerebral hemorrhage, unspecified Diagnosis: Principal (2) Hypertensive emergency ICD Code: I16.1 - Hypertensive emergency Diagnosis: Principal (3) Intracranial hemorrhage ICD Code: I62.9 - Nontraumatic intracranial hemorrhage, unspecified Diagnosis: Principal Procedures See hospital course Brief History - From Admission 77 y/o man with longstanding hypertension developed tingling in his right hand last evening. This did not resolve and he came to the ED. Severe hypertension and left basal ganglia bleed by CT scan. Started immediately on intravenous BP control and arrangements made to ship to [facility] [place] main [place]. On arrival his blood pressure is 187/98, P 64, RR 14. Tingling persists right side. CBC/BMP: 08/09/17 1120 08/11/17 0537 Significant Findings Laboratory Tests Test 08/09/17 13:20 08/09/17 16:15 08/10/17 05:00 08/11/17 05:37 Urine Mucus FEW /lpf (OCC) Estimat Glomerular Filtration Rate 59 ML/MIN (>89) 48 ML/MIN (>89) B-Type Natriuretic Peptide 111 PG/ML (0-100) Blood Urea Nitrogen 19 MG/DL (7-18) Creatinine 1.43 MG/DL (0.60-1.30) Imaging Last Impressions Head CT 08/10/17 0500 Signed Impressions: Service Date/Time: Thursday, August 10, 2017 04:33 - CONCLUSION: No change in left basal ganglia hemorrhage. Venkata Morgan MD Chest X-Ray 08/09/17 1101 Signed Impressions: Service Date/Time: Wednesday, August 09, 2017 11:19 - CONCLUSION: Mild failure. Huang Cisse MD FACR PE at Discharge GENERAL: in NAD CARDIOVASCULAR: Regular rate and rhythm without murmurs, gallops, or rubs. RESPIRATORY: Breath sounds equal bilaterally. No accessory muscle use. GASTROINTESTINAL: Abdomen soft, non-tender, nondistended. MUSCULOSKELETAL: Motor and sensation grossly intact. NEURO: AAO X3. Her nerve II-12 intact. Coordination is intact. Pt update on day of discharge Follow-up for uncontrolled hypertension and intracranial bleed Patient very anxious to go home. He stated that he has been walking down the hallway with his walker with no difficulty. Patient's nurse is at the bedside during the interview. He denied any headache, visual changes, nausea/vomiting or any new focal neurological deficits. Patient stated he is doing very well. He stated that he can see his physician in a couple days and that he will be able to get good follow-up. Patient had no complaints. Hospital Course This is a 77-year-old male who presented with tingling in his right hands went to emergency department. He had a stat CT scan which showed an intracranial bleed also hypertensive emergency. He was admitted to the ICU neurosurgeon was consulted. Patient was monitor very closely for any worsening of symptoms and he was put on the Cardene drip. Patient was later transitioned to oral antihypertensive medication was weaned off the Cardene drip successfully. His symptoms resolved but patient stated that he has l right knee pain/to use the walker. Patient was educated extensively that he must see his primary care provider to make sure that his blood pressure continues to be controlled and to follow-up with his kidney function since his creatinine had a mild increased today. I recommended that he gets this checked in 2 days. Patient stated that he will do that and that he understands the importance of following up with his provider as recommended by me. Pt Condition on Discharge: Stable Discharge Disposition: Disch w/ Home Health Serv Discharge Time: > 30 minutes Discharge Instructions DIET: Follow Instructions for: Heart Healthy Diet Activities you can perform: Regular-No Restrictions Follow up Referrals: PCP Follow-up - 2-3 Days New Medications: Hydrochlorothiazide (Hydrochlorothiazide) 25 Mg Tab 25 MG PO DAILY for hypertension, #30 TAB 0 Refills Amlodipine (Norvasc) 5 Mg Tab 5 MG PO BID for hypertension, #60 TAB 0 Refills Hydralazine HCl (Hydralazine HCl) 25 Mg Tablet 25 MG PO Q8HR for hypertension, #90 TAB 0 Refills Lisinopril (Lisinopril) 10 Mg Tab 10 MG PO Q12H for hypertension, #60 TAB 0 Refills Metoprolol Tartrate (Lopressor) 50 Mg Tab 50 MG PO Q12HR for hypertension, #60 TAB 0 Refills Continued Medications: Tamsulosin (Flomax) 0.4 Mg Cap 0.4 MG PO HS for Manage Prostate Problems, #30 CAP 0 Refills Corrina Amaya MD Aug 12, 2017 13:09
--- NOTE | 2017-08-12 14:46 | HHI.FF ---
Face to Face Verification Diagnosis: (1) Intracranial hemorrhage (2) Renal insufficiency (3) Hypertensive emergency (4) Stroke, hemorrhagic Physical Therapy Order: Evaluate and Treat, Improve ambulation, Strength and gait training Home Health Nursing Order: Medical education Signs/symptoms of disease process I have seen patient Gaudencio Rodrigez on 08/12/17. My clinical findings support the need for the requested home health care services because: Ltd mobility - disease progression Deconditioned w/ increased weakness I certify that my clinical findings support that this patient is homebound because: Unsteady gait/balance Corrina Amaya MD Aug 12, 2017 14:46
== END 2017-08-12 15:31 | disposition home health service (06) | DRG 65 ==
LOC: PHED 10:22 → PHEDA 11:53 → N03B 12:56 → N05B 08-11 20:05
PROVIDERS: ADMIT Family Medicine; ATTEND Family Medicine
DX: I61.0 Nontraumatic intracerebral hemorrhage in hemisphere, subcortical (principal); I16.1 Hypertensive emergency; E07.9 Disorder of thyroid, unspecified; K21.9 Gastro-esophageal reflux disease without esophagitis; E78.00 Pure hypercholesterolemia, unspecified; N28.9 Disorder of kidney and ureter, unspecified; Z85.46 Personal history of malignant neoplasm of prostate
CPT/HCPCS: 70450; 71010; 80048; 80053; 81001; 83735; 83880; 84100; 84484; 85025; 85610; 85730; 87641; 93005; J7030; J7050